=== PATIENT | female | born 1940 | race Caucasian/White ===

== ENCOUNTER 2018-11-19 08:28 | Inpatient (IN) | payer MEDICARE, OTHER ==
[~2018-11-19] VITALS: Ht 162.6 cm; Wt 89.2 kg
[2018-11-19] MEDS ORDERED: IV NORMAL SALINE 1000ML BAG 1,000 ML IV SCH (08:40)
[2018-11-19 08:53] LABS: BASO % 1 % (0-3); EOS # 0.1 x10^3/uL (0.0-0.7); EOS % 2 % (0-3); HEMATOCRIT 30.3 % (36.0-47.0); HEMOGLOBIN 9.9 g/dL (12.0-15.5); LYMPH # 0.9 x10^3/uL (1.0-4.8); LYMPH % 14 % (24-48); MEAN CORPUSCULAR HEMOGLOBIN 28 pg (25-35); MEAN CORPUSCULAR HGB CONC 33 g/dL (31-37); MEAN CORPUSCULAR VOLUME 87 fL (79-100); MONO # 0.5 x10^3/uL (0.0-1.1); MONO % 8 % (0-9); NEUT # 4.9 x10^3uL (1.8-7.7); NEUT % 76 % (31-73); PLATELET COUNT 178 x10^3/uL (140-400); RED CELL DISTRIBUTION WIDTH 17.4 % (11.5-14.5); WHITE BLOOD COUNT 6.4 x10^3/uL (4.0-11.0)
--- NOTE | 2018-11-19 08:57 | RAD ---
CT CODE STROKE HEAD WITHOUT CONTRAST Clinical indications: ALTERED MENTAL STATUS, BLANK GAZE, UNRESPONSIVE ON SET @802AM COMPARISON: February 09, 2007. Technique: Noncontrast axial cross sectional scanning of the head was performed. PQRS compliance Statement One or more of the following individualized dose reduction techniques were utilized for this study: 1. Automated exposure control 2. Adjustment of the mA and/or kV according to patient size 3. Use of iterative reconstruction technique Findings: No acute intracranial hemorrhage or midline shift or mass-effect or extra-axial fluid collection is seen. There is an increase in size of the lateral ventricles since the prior study. There is an increase in size of the sylvian fissures bilaterally consistent with progressive atrophy. There is mild bilateral periventricular white matter hypodensity consistent with chronic small vessel ischemic disease. There is an old appearing small cortical infarct of the upper right posterior parietal lobe medially. This is new since the previous study but demonstrates features indicating chronicity. No skull fracture or pneumocephalus is seen. No opacification of the mastoid sinuses or the middle ear cavities is seen. There is complete opacification of the left maxillary sinus and anterior left ethmoid sinus and left frontal sinus. Chronic opacification of the left anterior ethmoid sinus is seen and is unchanged. The left maxillary sinus is now completely opacified which has progressed from the prior study. Left frontal sinus is now completely opacified which has progressed from the prior study. There has been resolution of the left sphenoid sinusitis seen previously and there has been resolution of the previously seen left posterior ethmoid sinusitis. IMPRESSION: No acute intracranial hemorrhage is seen. Mild chronic small vessel ischemic disease of the periventricular white matter. 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 Increase in size of the lateral ventricles bilaterally. This could be secondary to progressive atrophy or normal pressure hydrocephalus. Chronic sinusitis with progression of the left frontal and maxillary sinuses. Note-this critical result was called to the emergency room physician at 8:44 AM on November 19, 2018. Electronically signed by: Abisai Shook MD (11/19/2018 8:53 AM) [facility]
[2018-11-19 09:01] LABS: CALCIUM 9.1 mg/dL (8.5-10.1); CREATININE 2.5 mg/dL (0.6-1.0); GFR 18.7; POTASSIUM 5.8 mmol/L (3.5-5.1)
[2018-11-19 09:03] LABS: PROTHROMBIN TIME PATIENT 16.4 SEC (11.7-14.0)
[2018-11-19 09:09] LABS: ALBUMIN 3.2 g/dL (3.4-5.0); ALBUMIN/GLOBULIN RATIO 0.8 (1.0-1.7); MAGNESIUM 2.4 mg/dL (1.8-2.4); TOTAL BILIRUBIN 0.7 mg/dL (0.2-1.0); TOTAL PROTEIN 7.3 g/dL (6.4-8.2)
[2018-11-19] MEDS ORDERED: NALOXONE 0.4 MG/ML VIAL. IV ONE (09:15)
--- NOTE | 2018-11-19 09:31 | RAD ---
PORTABLE CHEST 1V Clinical indications: altered mental status COMPARISON: April 09, 2008 Findings: Sternotomy is again evident. Since the previous study, a 3-lead pacemaker has been placed via a left subclavian approach. Heart size is mildly prominent some of which may be due to AP magnification. The mediastinum and pulmonary vasculature are unremarkable otherwise. Decreased lung volumes are seen which is chronic. There is right infrahilar infiltrate or atelectasis. There is medial left lung base infiltrate or atelectasis. Lateral left midlung zone linear atelectasis is seen. No pleural effusion or pneumothorax is seen. Impression: Right infrahilar atelectasis or infiltrate. Medial left lung base infiltrate or atelectasis. Linear atelectasis of the left midlung zone. Electronically signed by: Abisai Shook MD (11/19/2018 9:26 AM) [facility]
[2018-11-19] MEDS ORDERED: DEXTROSE 50% 25 GM / 50ML DISP.SYRIN. IV ONE (09:45)
[2018-11-19] MEDS ORDERED: INSULIN REGULAR 100 UNIT/ML 3ML VIAL. IV ONE (09:45)
--- NOTE | 2018-11-19 09:51 | PHYS DOC ---
Past Medical History Past Medical History: Anemia, Diabetes-Type II, High Cholesterol, Heart Disease , Hypertension Additional Past Medical Histor: CHRONIC KIDNEY DISEASE Past Surgical History: Pacemaker Additional Past Surgical Histo: NOT ABLE TO GET A FULL HISTORY Alcohol Use: None Drug Use: None Adult General Chief Complaint Chief Complaint: ALTERED MENTAL STATUS HPI HPI Patient is a 78-year-old female who arrives EMS with report of acute mental status changes. Patient is over at assisted living and reportedly was last seen normal at about 4:30 this morning. EMS reports that patient had one episode of emesis while at her facility and there was a second episode of emesis while in route to the hospital. They do note that patient has had a bit of a leftward gaze and otherwise they are not able to get any history of patient as she is nonverbal. Additional history is limited as patient is nonverbal secondary to mental status change. Review of Systems Review of Systems Constitutional: Denies fever [] Cardiovascular: No additional information not addressed in HPI [] GI: Positive nausea and vomiting [] Neurologic: Positive mental status changes [] Unable to fully assess review of systems due to patient's mental status and nonverbal state. Current Medications Current Medications Current Medications Medications (Trade) Dose Ordered Sig/Antonio Start Time Stop Time Status Last Admin Dose Admin Aspirin (Xander Aspirin) 325 mg 1X ONCE 11/19/18 10:15 11/19/18 10:16 DC Dextrose (Dextrose 50%-Water Syringe) 25 gm 1X ONCE 11/19/18 09:45 11/19/18 09:46 DC 11/19/18 10:02 25 GM Insulin Human Regular (HumuLIN R VIAL) 10 unit 1X ONCE 11/19/18 09:45 11/19/18 09:46 DC 11/19/18 10:01 10 UNIT Naloxone HCl (Narcan) 0.8 mg 1X ONCE 11/19/18 09:15 11/19/18 09:16 DC 11/19/18 10:02 0.8 MG Sodium Bicarbonate 50 meq/Sodium Chloride 1,050 ml @ 125 mls/hr 1X ONCE 11/19/18 10:00 11/19/18 18:23 11/19/18 09:52 125 MLS/HR Sodium Chloride 1,000 ml @ 100 mls/hr Q10H 11/19/18 08:40 11/19/18 18:39 11/19/18 09:54 100 MLS/HR Allergies Allergies Allergies Coded Allergies Type Severity Reaction Last Updated Verified Unable to Assess 11/19/18 No Physical Exam Physical Exam Constitutional: Somnolent but arousable, non-toxic appearance. [] HENT: Normocephalic, atraumatic, bilateral external ears normal, oropharynx dry , no oral exudates, nose normal. [] Eyes: PERRLA, EOMI, conjunctiva normal, no discharge. [] Neck: Normal range of motion, no tenderness, supple, no stridor. [] Cardiovascular: Regular rate and rhythm [] Lungs & Thorax: Bilateral breath sounds clear to auscultation [] Abdomen: Bowel sounds normal, soft, no tenderness. [] Skin: Warm, dry, no erythema, no rash. [] Extremities: No tenderness, no cyanosis, no clubbing. 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 Unable to fully assess neurological status due to patient having difficulty with following commands and nonverbal state. [] Current Patient Data Vital Signs Vital Signs Date Time Temp Pulse Resp B/P (MAP) Pulse Ox O2 Delivery O2 Flow Rate FiO2 11/19/18 08:38 98.4 64 14 143/75 (97) 90 Nasal Cannula 2.0 98.4 Lab Values Laboratory Tests Test 11/19/18 08:35 11/19/18 08:41 White Blood Count 6.4 x10^3/uL (4.0-11.0) Red Blood Count 3.50 x10^6/uL (3.50-5.40) Hemoglobin 9.9 g/dL (12.0-15.5) L Hematocrit 30.3 % (36.0-47.0) L Mean Corpuscular Volume 87 fL (79-100) Mean Corpuscular Hemoglobin 28 pg (25-35) Mean Corpuscular Hemoglobin Concent 33 g/dL (31-37) Red Cell Distribution Width 17.4 % (11.5-14.5) H Platelet Count 178 x10^3/uL (140-400) Neutrophils (%) (Auto) 76 % (31-73) H Lymphocytes (%) (Auto) 14 % (24-48) L Monocytes (%) (Auto) 8 % (0-9) Eosinophils (%) (Auto) 2 % (0-3) Basophils (%) (Auto) 1 % (0-3) Neutrophils # (Auto) 4.9 x10^3uL (1.8-7.7) Lymphocytes # (Auto) 0.9 x10^3/uL (1.0-4.8) L Monocytes # (Auto) 0.5 x10^3/uL (0.0-1.1) Eosinophils # (Auto) 0.1 x10^3/uL (0.0-0.7) Basophils # (Auto) 0.0 x10^3/uL (0.0-0.2) Prothrombin Time 16.4 SEC (11.7-14.0) H Prothrombin Time INR 1.4 (0.8-1.1) H Sodium Level 138 mmol/L (136-145) Potassium Level 5.8 mmol/L (3.5-5.1) H Chloride Level 105 mmol/L (98-107) Carbon Dioxide Level 21 mmol/L (21-32) Anion Gap 12 (6-14) Blood Urea Nitrogen 47 mg/dL (7-20) H Creatinine 2.5 mg/dL (0.6-1.0) H Estimated GFR (Cockcroft-Gault) 18.7 BUN/Creatinine Ratio 19 (6-20) Glucose Level 125 mg/dL (70-99) H Calcium Level 9.1 mg/dL (8.5-10.1) Magnesium Level 2.4 mg/dL (1.8-2.4) Total Bilirubin 0.7 mg/dL (0.2-1.0) Aspartate Amino Transferase (AST) 28 U/L (15-37) Alanine Aminotransferase (ALT) 19 U/L (14-59) Alkaline Phosphatase 150 U/L (46-116) H Troponin I Quantitative < 0.017 ng/mL (0.000-0.055) Total Protein 7.3 g/dL (6.4-8.2) Albumin 3.2 g/dL (3.4-5.0) L Albumin/Globulin Ratio 0.8 (1.0-1.7) L Glucose (Fingerstick) 121 mg/dL (70-99) H Laboratory Tests 11/19/18 08:35 Laboratory Tests 11/19/18 08:35 EKG EKG [] Interpretation Time: EKG demonstrates a ventricular paced rhythm with rate of 60 Radiology/Procedures Radiology/Procedures [] Impressions: CT CODE STROKE HEAD WITHOUT CONTRAST Clinical indications: ALTERED MENTAL STATUS, BLANK GAZE, UNRESPONSIVE ON SET @802AM COMPARISON: February 09, 2007. Technique: Noncontrast axial cross sectional scanning of the head was performed. PQRS compliance Statement One or more of the following individualized dose reduction techniques were utilized for this study: 1. Automated exposure control 2. Adjustment of the mA and/or kV according to patient size 3. Use of iterative reconstruction technique Findings: No acute intracranial hemorrhage or midline shift or mass-effect or extra-axial fluid collection is seen. There is an increase in size of the lateral ventricles since the prior study. There is an increase in size of the sylvian fissures bilaterally consistent with progressive atrophy. There is mild bilateral periventricular white matter hypodensity consistent with chronic small vessel ischemic disease. There is an old appearing small cortical infarct of the upper right posterior parietal lobe medially. This is new since the previous study but demonstrates features indicating chronicity. No skull fracture or pneumocephalus is seen. No opacification of the mastoid sinuses or the middle ear cavities is seen. There is complete opacification of the left maxillary sinus and anterior left ethmoid sinus and left frontal sinus. Chronic opacification of the left anterior ethmoid sinus is seen and is unchanged. The left maxillary sinus is now completely opacified which has progressed from the prior study. Left frontal sinus is now completely opacified which has progressed from the prior study. There has been resolution of the left sphenoid sinusitis seen previously and there has been resolution of the previously seen left posterior ethmoid sinusitis. IMPRESSION: No acute intracranial hemorrhage is seen. Mild chronic small vessel ischemic disease of the periventricular white matter. 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 Increase in size of the lateral ventricles bilaterally. This could be secondary to progressive atrophy or normal pressure hydrocephalus. Chronic sinusitis with progression of the left frontal and maxillary sinuses. Note-this critical result was called to the emergency room physician at 8:44 AM on November 19, 2018. Electronically signed by: Abisai Shook MD (11/19/2018 8:53 AM) [facility] Course & Med Decision Making Course & Med Decision Making Pertinent Labs and Imaging studies reviewed. (See chart for details) Patient seen and evaluated by your medical staff and immediately sent down for CT head without contrast. An IV was established and blood work drawn. Initial evaluation of patient very limited due to mental status. Patient was given a dose of IV Narcan 0.8 mg. Later, during nurse assessment, an NIH stroke scale was performed and returned with a score of 18. At this point, nurse indicates that patient was more verbal and was following commands. Dr. Pepper, on-call for neurology, was consulted and recommends admission under hospitalist service for further workup. Dragon Disclaimer Dragon Disclaimer This electronic medical record was generated, in whole or in part, using a voice recognition dictation system. Departure Departure Impression: Primary Impression: Altered mental status, unspecified Additional Impression: Right sided weakness Disposition: ADMITTED INPATIENT Admitting Physician: Renetta Saldivar Condition: IMPROVED Problem Qualifiers Primary Impression: Altered mental status, unspecified Altered mental status type: unspecified Qualified Codes: R41.82 - Altered mental status, unspecified LEE FRAGOSO Jr. DO Nov 19, 2018 09:51
[2018-11-19] MEDS ORDERED: SODIUM BICARBONATE VIAL 50 MEQ in IV 1/2 NORMAL SALINE 1,000 ML IV ONE (10:00)
[2018-11-19] MEDS ORDERED: ASPIRIN 325 MG TABLET PO ONE (10:15)
--- NOTE | 2018-11-19 10:49 | PDOC1 ---
History and Physical Date of Admission Date of Admission DATE: 11/19/18 TIME: 10:42 Identification/Chief Complaint Chief Complaint Change in mental status in assisted living Source Source: Caregiver, Chart review, Patient History of Present Illness History of Present Illness MOst of hx obtained from the ER M.D. and from the chart as patient is nonverbal or minimally cooperative and there is no family at bedside Apparently last seen well 4:30 AM giving meds and the next thing they went in and she was not mumbling words. Neuro exam is hard to get or NIH is hard to get because she is not cooperative. But CT head is negative and chest x-ray maybe shows atelectasis may be infiltrate or haziness on the right and medial lower lobes. Labs are remarkable for mild hyperkalemia with no EKG changes 5.8 with a creatinine 2.5. INR 1.2 hemoglobin 9. Vital signs okay. Admitted with call out to neurology for MRI echo stroke workup. I will also consult renal regarding this hyperkalemia and creatinine. Bicarbonate and anion gap is normal Patient is a full code per chart I am unsure of past medical as we are still waiting for home meds Past Surgical History Past Surgical History: Other (unknown) Family History Family History: Family History Unknown Social History Smoke: No ALCOHOL: none Drugs: None Current Problem List Problem List Problems Medical Problems: (1) Altered mental status, unspecified Status: Acute (2) Right sided weakness Status: Acute Current Medications Current Medications Current Medications Sodium Chloride 1,000 ml @ 100 mls/hr Q10H IV Last administered on 11/19/18at 09:54; Start 11/19/18 at 08:40; Stop 11/19/18 at 18:39 Naloxone HCl (Narcan) 0.8 mg 1X ONCE IV Last administered on 11/19/18at 10:02; Start 11/19/18 at 09:15; Stop 11/19/18 at 09:16; Status DC Insulin Human Regular (HumuLIN R VIAL) 10 unit 1X ONCE IV Last administered on 11/19/18at 10:01; Start 11/19/18 at 09:45; Stop 11/19/18 at 09:46; Status DC Dextrose (Dextrose 50%-Water Syringe) 25 gm 1X ONCE IV Last administered on at 10:02; Start 11/19/18 at 09:45; Stop 11/19/18 at 09:46; Status DC Sodium Bicarbonate 50 meq/Sodium Chloride 1,050 ml @ 125 mls/hr 1X ONCE IV Last administered on 11/19/18at 09:52; Start 11/19/18 at 10:00; Stop 11/19/18 at 18:23 Aspirin (Xander Aspirin) 325 mg 1X ONCE PO ; Start 11/19/18 at 10:15; Stop 11/19 at 10:16; Status DC Allergies Allergies: Coded Allergies: Unable to Assess (Unverified , 11/19/18) ROS Review of System limited, noncooperative Physical Exam General: No acute distress HEENT: PERRLA Lungs: Normal air movement, Other (dec BS sec to poor effort, SCE) Heart: S1S2, RRR, no thrills, no rubs, no gallops, no murmurs Cardiovascular: S1, S2 Breasts: Normal, Rt breast nml w/o mass, Lt breast nml w/o mass, Nipples normal Abdomen: Normal bowel sounds, Soft, No tenderness, No hepatosplenomegaly, No masses Rectal Exam: not examined PELVIC: Nml ext genitalia Extremities: No clubbing, No cyanosis, No edema, Normal pulses, No tenderness/ swelling Skin: No rashes, No breakdown, No significant lesion Neuro: Normal gait, Normal speech, Strength at 5/5 X4 ext, Normal tone, Sensation intact, Cranial nerves 3-12 NL, Reflexes 2+ Psych/Mental Status: Mental status NL, Mood NL Vitals Vitals Vital Signs Date Time Temp Pulse Resp B/P (MAP) Pulse Ox O2 Delivery O2 Flow Rate FiO2 11/19/18 08:38 98.4 64 14 143/75 (97) 90 Nasal Cannula 2.0 98.4 Labs Labs Laboratory Tests Test 11/19/18 08:35 11/19/18 08:41 White Blood Count 6.4 x10^3/uL (4.0-11.0) Red Blood Count 3.50 x10^6/uL (3.50-5.40) Hemoglobin 9.9 g/dL (12.0-15.5) Hematocrit 30.3 % (36.0-47.0) Mean Corpuscular Volume 87 fL (79-100) Mean Corpuscular Hemoglobin 28 pg (25-35) Mean Corpuscular Hemoglobin Concent 33 g/dL (31-37) Red Cell Distribution Width 17.4 % (11.5-14.5) Platelet Count 178 x10^3/uL (140-400) Neutrophils (%) (Auto) 76 % (31-73) Lymphocytes (%) (Auto) 14 % (24-48) Monocytes (%) (Auto) 8 % (0-9) Eosinophils (%) (Auto) 2 % (0-3) Basophils (%) (Auto) 1 % (0-3) Neutrophils # (Auto) 4.9 x10^3uL (1.8-7.7) Lymphocytes # (Auto) 0.9 x10^3/uL (1.0-4.8) Monocytes # (Auto) 0.5 x10^3/uL (0.0-1.1) Eosinophils # (Auto) 0.1 x10^3/uL (0.0-0.7) Basophils # (Auto) 0.0 x10^3/uL (0.0-0.2) Prothrombin Time 16.4 SEC (11.7-14.0) Prothromb Time International Ratio 1.4 (0.8-1.1) Sodium Level 138 mmol/L (136-145) Potassium Level 5.8 mmol/L (3.5-5.1) Chloride Level 105 mmol/L (98-107) Carbon Dioxide Level 21 mmol/L (21-32) Anion Gap 12 (6-14) Blood Urea Nitrogen 47 mg/dL (7-20) Creatinine 2.5 mg/dL (0.6-1.0) Estimated GFR (Cockcroft-Gault) 18.7 BUN/Creatinine Ratio 19 (6-20) Glucose Level 125 mg/dL (70-99) Calcium Level 9.1 mg/dL (8.5-10.1) Magnesium Level 2.4 mg/dL (1.8-2.4) Total Bilirubin 0.7 mg/dL (0.2-1.0) Aspartate Amino Transf (AST/SGOT) 28 U/L (15-37) Alanine Aminotransferase (ALT/SGPT) 19 U/L (14-59) Alkaline Phosphatase 150 U/L (46-116) Troponin I Quantitative < 0.017 ng/mL (0.000-0.055) Total Protein 7.3 g/dL (6.4-8.2) Albumin 3.2 g/dL (3.4-5.0) Albumin/Globulin Ratio 0.8 (1.0-1.7) Glucose (Fingerstick) 121 mg/dL (70-99) Laboratory Tests Test 11/19/18 08:35 11/19/18 08:41 White Blood Count 6.4 x10^3/uL (4.0-11.0) Red Blood Count 3.50 x10^6/uL (3.50-5.40) Hemoglobin 9.9 g/dL (12.0-15.5) Hematocrit 30.3 % (36.0-47.0) Mean Corpuscular Volume 87 fL (79-100) Mean Corpuscular Hemoglobin 28 pg (25-35) Mean Corpuscular Hemoglobin Concent 33 g/dL (31-37) Red Cell Distribution Width 17.4 % (11.5-14.5) Platelet Count 178 x10^3/uL (140-400) Neutrophils (%) (Auto) 76 % (31-73) Lymphocytes (%) (Auto) 14 % (24-48) Monocytes (%) (Auto) 8 % (0-9) Eosinophils (%) (Auto) 2 % (0-3) Basophils (%) (Auto) 1 % (0-3) Neutrophils # (Auto) 4.9 x10^3uL (1.8-7.7) Lymphocytes # (Auto) 0.9 x10^3/uL (1.0-4.8) Monocytes # (Auto) 0.5 x10^3/uL (0.0-1.1) Eosinophils # (Auto) 0.1 x10^3/uL (0.0-0.7) Basophils # (Auto) 0.0 x10^3/uL (0.0-0.2) Prothrombin Time 16.4 SEC (11.7-14.0) Prothromb Time International Ratio 1.4 (0.8-1.1) Sodium Level 138 mmol/L (136-145) Potassium Level 5.8 mmol/L (3.5-5.1) Chloride Level 105 mmol/L (98-107) Carbon Dioxide Level 21 mmol/L (21-32) Anion Gap 12 (6-14) Blood Urea Nitrogen 47 mg/dL (7-20) Creatinine 2.5 mg/dL (0.6-1.0) Estimated GFR (Cockcroft-Gault) 18.7 BUN/Creatinine Ratio 19 (6-20) Glucose Level 125 mg/dL (70-99) Calcium Level 9.1 mg/dL (8.5-10.1) Magnesium Level 2.4 mg/dL (1.8-2.4) Total Bilirubin 0.7 mg/dL (0.2-1.0) Aspartate Amino Transf (AST/SGOT) 28 U/L (15-37) Alanine Aminotransferase (ALT/SGPT) 19 U/L (14-59) Alkaline Phosphatase 150 U/L (46-116) Troponin I Quantitative < 0.017 ng/mL (0.000-0.055) Total Protein 7.3 g/dL (6.4-8.2) Albumin 3.2 g/dL (3.4-5.0) Albumin/Globulin Ratio 0.8 (1.0-1.7) Glucose (Fingerstick) 121 mg/dL (70-99) VTE Prophylaxis Ordered VTE Prophylaxis Devices: Yes VTE Pharmacological Prophylaxi: Yes Assessment/Plan Assessment/Plan Met enCephalopathy differentials include aspiration versus rule out CVA versus rule out [id number] workup Fall precaution Nothing by mouth for now until DIRECTOR OF PROVIDER RELATIONS eval or mentation improves AK I ?CK D with hyperkalemia Anemia normocytic [place] resident Full code PLAN: Admit 2 [place] NOthing By mouth, ProcalAmine, DIRECTOR OF PROVIDER RELATIONS eval, PT OT, full code Stroke workup Differentials include meds induced versus aspiration versus CVA I'm waiting for Home meds to reconcile Consult renal regarding the creatinine and hyperkalemia Kayexalate now Temporizing measures for the potassium DVT ppx with heparin Seen at ER 2 PACO CHAO MD Nov 19, 2018 10:49
[2018-11-19] MEDS ORDERED: ACETAMINOPHEN 500 MG TABLET PO PRN (11:00)
[2018-11-19] MEDS ORDERED: MORPHINE SULFATE 4 MG/ML VIAL. IV PRN (11:00)
[2018-11-19] MEDS ORDERED: ONDANSETRON PF 4 MG/2 ML VIAL. IV PRN (11:00)
[2018-11-19 13:40] LABS: BILIRUBIN,URINE NEGATIVE (NEG); CLARITY,URINE CLEAR; COLOR,URINE YELLOW; NITRITE,URINE NEGATIVE (NEG); PH,URINE 5.5; PROTEIN,URINE >=300 mg/dL (NEG-TRACE)
[2018-11-19 13:53] LABS: BACTERIA,URINE 0 /HPF (0-FEW); RBC,URINE RARE /HPF (0-2); SQUAMOUS EPITHELIAL CELL,UR MOD /LPF; WBC,URINE 0 /HPF (0-4)
[2018-11-19] MEDS: HEPARIN for SUB-Q USE 5,000 UNIT/ML VIAL. SQ SCH ×2 (14:00→21:15)
--- NOTE | 2018-11-19 14:36 | NUR ---
NIHSS done at bedside upon transfer to [facility] with Phong SHANKAR from . Addendum: 11/19/18 at 1437 by EVANGELISTA BENDER RN Amended: Links added.
--- NOTE | 2018-11-19 14:46 | PDOC2 ---
CONSULT Date of Consult Date of Consult DATE: 11/19/18 TIME: 14:43 Reason for Consult Reason for Consult: Change in mental status Identification/Chief Complaint Chief Complaint Change in mental status History of Present Illness Reason for Visit: This patient is 78-year-old woman who presented to from the facility with change in mental status. Patient lives at assisted living facility. Information obtained from multiple family members at bedside. Patient was not feeling well for last over 1 day. Patient at this morning for 30 was more confused patient does have previous history of stroke with aphasia and ambulates with a wheelchair at baseline. Patient had a chest x-ray showing possible infiltrate. Patient also has elevated creatinine on presentation. Past Surgical History Past Surgical History: Other (unknown) Family History Family History: Family History Unknown Social History No ALCOHOL: none Drugs: None Current Problem List Problem List Problems Medical Problems: (1) Altered mental status, unspecified Status: Acute (2) Right sided weakness Status: Acute Current Medications Current Medications Current Medications Sodium Chloride 1,000 ml @ 100 mls/hr Q10H IV Last administered on 11/19/18at 09:54; Start 11/19/18 at 08:40; Stop 11/19/18 at 18:39 Naloxone HCl (Narcan) 0.8 mg 1X ONCE IV Last administered on 11/19/18at 10:02; Start 11/19/18 at 09:15; Stop 11/19/18 at 09:16; Status DC Insulin Human Regular (HumuLIN R VIAL) 10 unit 1X ONCE IV Last administered on 11/19/18at 10:01; Start 11/19/18 at 09:45; Stop 11/19/18 at 09:46; Status DC Dextrose (Dextrose 50%-Water Syringe) 25 gm 1X ONCE IV Last administered on at 10:02; Start 11/19/18 at 09:45; Stop 11/19/18 at 09:46; Status DC Sodium Bicarbonate 50 meq/Sodium Chloride 1,050 ml @ 125 mls/hr 1X ONCE IV Last administered on 11/19/18at 09:52; Start 11/19/18 at 10:00; Stop 11/19/18 at 18:23 Aspirin (Xander Aspirin) 325 mg 1X ONCE PO ; Start 11/19/18 at 10:15; Stop 11/19 at 10:16; Status DC Famotidine (Pepcid Vial) 20 mg QHS IVP ; Start 11/19/18 at 21:00 Heparin Sodium (Porcine) (Heparin Sodium) 5,000 unit Q8HRS SQ ; Start 11/19/18 at 14:00 Acetaminophen (Tylenol) 500 mg PRN Q6HRS PRN PO HEADACHE / TEMP; Start at 11:00 Ondansetron HCl (Zofran) 4 mg PRN Q6HRS PRN IV NAUSEA/VOMITING; Start 11/19/18 at 11:00 Morphine Sulfate (Morphine Sulfate) 1 mg PRN Q2HR PRN IV PAIN; Start 11/19/18 at 11:00 Allergies Allergies: Coded Allergies: No Known Drug Allergies (Unverified , 11/19/18) Physical Exam Physical Exam REVIEW OF SYSTEMS: Otherwise, not [id number] review of systems. PHYSICAL EXAMINATION: General appearance is no acute distress. HEENT: Normocephalic and nontraumatic. Neck is supple. No lymphadenopathy. No crepitus. Cardiovascular: S1, S2, regular rate and rhythm. Pulmonary: Clear to auscultation bilaterally. Abdomen: Bowel sounds are positive. Abdomen is soft, nontender, and nondistended. NEUROLOGICAL EXAMINATION: Alert Able to follow simple commands. PERRL. EOMI. CN: no focal findings Physiatry. Muscle tone: within normal. Muscle strength: Able to move upper extremities lower extremity minimum. DTR: 1 Plantar reflex: Flexor response bilaterally Gait: not examined in bed. Sensory exam: no abnormal findings. Vitals VITALS Vital Signs Date Time Temp Pulse Resp B/P (MAP) Pulse Ox O2 Delivery O2 Flow Rate FiO2 11/19/18 10:45 59 16 100 11/19/18 08:38 98.4 143/75 (97) Nasal Cannula 2.0 98.4 Labs Labs Laboratory Tests Test 11/19/18 08:35 11/19/18 08:41 11/19/18 13:14 White Blood Count 6.4 x10^3/uL (4.0-11.0) Red Blood Count 3.50 x10^6/uL (3.50-5.40) Hemoglobin 9.9 g/dL (12.0-15.5) Hematocrit 30.3 % (36.0-47.0) Mean Corpuscular Volume 87 fL (79-100) Mean Corpuscular Hemoglobin 28 pg (25-35) Mean Corpuscular Hemoglobin Concent 33 g/dL (31-37) Red Cell Distribution Width 17.4 % (11.5-14.5) Platelet Count 178 x10^3/uL (140-400) Neutrophils (%) (Auto) 76 % (31-73) Lymphocytes (%) (Auto) 14 % (24-48) Monocytes (%) (Auto) 8 % (0-9) Eosinophils (%) (Auto) 2 % (0-3) Basophils (%) (Auto) 1 % (0-3) Neutrophils # (Auto) 4.9 x10^3uL (1.8-7.7) Lymphocytes # (Auto) 0.9 x10^3/uL (1.0-4.8) Monocytes # (Auto) 0.5 x10^3/uL (0.0-1.1) Eosinophils # (Auto) 0.1 x10^3/uL (0.0-0.7) Basophils # (Auto) 0.0 x10^3/uL (0.0-0.2) Prothrombin Time 16.4 SEC (11.7-14.0) Prothromb Time International Ratio 1.4 (0.8-1.1) Sodium Level 138 mmol/L (136-145) Potassium Level 5.8 mmol/L (3.5-5.1) Chloride Level 105 mmol/L (98-107) Carbon Dioxide Level 21 mmol/L (21-32) Anion Gap 12 (6-14) Blood Urea Nitrogen 47 mg/dL (7-20) Creatinine 2.5 mg/dL (0.6-1.0) Estimated GFR (Cockcroft-Gault) 18.7 BUN/Creatinine Ratio 19 (6-20) Glucose Level 125 mg/dL (70-99) Calcium Level 9.1 mg/dL (8.5-10.1) Magnesium Level 2.4 mg/dL (1.8-2.4) Total Bilirubin 0.7 mg/dL (0.2-1.0) Aspartate Amino Transf (AST/SGOT) 28 U/L (15-37) Alanine Aminotransferase (ALT/SGPT) 19 U/L (14-59) Alkaline Phosphatase 150 U/L (46-116) Troponin I Quantitative < 0.017 ng/mL (0.000-0.055) Total Protein 7.3 g/dL (6.4-8.2) Albumin 3.2 g/dL (3.4-5.0) Albumin/Globulin Ratio 0.8 (1.0-1.7) Glucose (Fingerstick) 121 mg/dL (70-99) Urine Collection Type U cath Urine Color Yellow Urine Clarity Clear Urine pH 5.5 Urine Specific [place] 1.020 Urine Protein >=300 mg/dL (NEG-TRACE) Urine Glucose (UA) Negative mg/dL (NEG) Urine Ketones (Stick) Negative mg/dL (NEG) Urine Blood Negative (NEG) Urine Nitrite Negative (NEG) Urine Bilirubin Negative (NEG) Urine Urobilinogen Dipstick 1.0 mg/dL (0.2 mg/dL) Urine Leukocyte Esterase Negative (NEG) Urine RBC Rare /HPF (0-2) Urine WBC 0 /HPF (0-4) Urine Squamous Epithelial Cells Mod /LPF Urine Transitional Epithelial Cells Occ /LPF Urine Bacteria 0 /HPF (0-FEW) Laboratory Tests Test 11/19/18 08:35 11/19/18 08:41 11/19/18 13:14 White Blood Count 6.4 x10^3/uL (4.0-11.0) Red Blood Count 3.50 x10^6/uL (3.50-5.40) Hemoglobin 9.9 g/dL (12.0-15.5) Hematocrit 30.3 % (36.0-47.0) Mean Corpuscular Volume 87 fL (79-100) Mean Corpuscular Hemoglobin 28 pg (25-35) Mean Corpuscular Hemoglobin Concent 33 g/dL (31-37) Red Cell Distribution Width 17.4 % (11.5-14.5) Platelet Count 178 x10^3/uL (140-400) Neutrophils (%) (Auto) 76 % (31-73) Lymphocytes (%) (Auto) 14 % (24-48) Monocytes (%) (Auto) 8 % (0-9) Eosinophils (%) (Auto) 2 % (0-3) Basophils (%) (Auto) 1 % (0-3) Neutrophils # (Auto) 4.9 x10^3uL (1.8-7.7) Lymphocytes # (Auto) 0.9 x10^3/uL (1.0-4.8) Monocytes # (Auto) 0.5 x10^3/uL (0.0-1.1) Eosinophils # (Auto) 0.1 x10^3/uL (0.0-0.7) Basophils # (Auto) 0.0 x10^3/uL (0.0-0.2) Prothrombin Time 16.4 SEC (11.7-14.0) Prothromb Time International Ratio 1.4 (0.8-1.1) Sodium Level 138 mmol/L (136-145) Potassium Level 5.8 mmol/L (3.5-5.1) Chloride Level 105 mmol/L (98-107) Carbon Dioxide Level 21 mmol/L (21-32) Anion Gap 12 (6-14) Blood Urea Nitrogen 47 mg/dL (7-20) Creatinine 2.5 mg/dL (0.6-1.0) Estimated GFR (Cockcroft-Gault) 18.7 BUN/Creatinine Ratio 19 (6-20) Glucose Level 125 mg/dL (70-99) Calcium Level 9.1 mg/dL (8.5-10.1) Magnesium Level 2.4 mg/dL (1.8-2.4) Total Bilirubin 0.7 mg/dL (0.2-1.0) Aspartate Amino Transf (AST/SGOT) 28 U/L (15-37) Alanine Aminotransferase (ALT/SGPT) 19 U/L (14-59) Alkaline Phosphatase 150 U/L (46-116) Troponin I Quantitative < 0.017 ng/mL (0.000-0.055) Total Protein 7.3 g/dL (6.4-8.2) Albumin 3.2 g/dL (3.4-5.0) Albumin/Globulin Ratio 0.8 (1.0-1.7) Glucose (Fingerstick) 121 mg/dL (70-99) Urine Collection Type U cath Urine Color Yellow Urine Clarity Clear Urine pH 5.5 Urine Specific [place] 1.020 Urine Protein >=300 mg/dL (NEG-TRACE) Urine Glucose (UA) Negative mg/dL (NEG) Urine Ketones (Stick) Negative mg/dL (NEG) Urine Blood Negative (NEG) Urine Nitrite Negative (NEG) Urine Bilirubin Negative (NEG) Urine Urobilinogen Dipstick 1.0 mg/dL (0.2 mg/dL) Urine Leukocyte Esterase Negative (NEG) Urine RBC Rare /HPF (0-2) Urine WBC 0 /HPF (0-4) Urine Squamous Epithelial Cells Mod /LPF Urine Transitional Epithelial Cells Occ /LPF Urine Bacteria 0 /HPF (0-FEW) Assessment/Plan Assessment/Plan This patient is 78-year-old woman who presented to from the facility with altered mental status. Patient lives at assisted living facility. Information obtained from multiple family members at bedside. Patient was not feeling well for last over 1 day. Patient at this morning for 30 was more confused patient does have previous history of stroke with aphasia and ambulates with a wheelchair at baseline. Patient had a chest x-ray showing possible infiltrate. Patient also has elevated creatinine on presentation. 78-year-old female with past medical history of multiple medical problems with previous history of stroke patient ambulates with wheelchair at baseline. Patient did not meet criteria for IV TPA patient was outside the window. Encephalopathy multifactorial we will evaluate for any acute intracranial process. pt is currently being treated for acute on chronic kidney disease, hyperkalemia, aspiration pneumonia. She had a CT scan done in emergency room which did not show any evidence of acute bleed. Changes noted for chronic small vessel ischemic disease. Old cortical stroke noted in right parietal lobe. Changes also noted for generalized atrophy. Changes on dual antiplatelet. MRI brain may not be done due to current medical condition. Check 2-D echo, K Doppler, check lipid profile, statin, PTOT speech evaluation. Check for infectious or metabolic etiology. Continue medical management. Plan discussed with multiple family members at bedside. DELMA GARCIA MD Nov 19, 2018 14:46
[2018-11-19 15:00] VITALS: BP 146/56
--- NOTE | 2018-11-19 15:04 | PDOC2 ---
CONSULT Date of Consult Date of Consult DATE: 11/19/18 TIME: 14:55 Reason for Consult Reason for Consult: NEETU AND HIGH K Referring Physician Referring Physician: ZHANNA Identification/Chief Complaint Chief Complaint CONFUSION Source Source: Chart review History of Present Illness Reason for Visit: THIS IS A 78 YR OLD WHO APPARENTLY HAS RIGHT SIDED WEAKNESS AND IS NON VERBAL. FELT TO ACUTE IN NATURE. SHE CANNOT GIVE ANY HX. IMAGING OF THE HEAD HAS BEEN NEG THUS FAR. NO OLD RECORDS HERE AND NONE FROM ELSE WHERE AVAILABLE. CR OF 2.5 AND K OF 5.8 WITH MILD MET ACIDOSIS NOTED. APPEARS TO BE SOMEWHAT DEHYDRATED Past Medical History Past Medical History UNKNOWN Cardiovascular: HTN Past Surgical History Past Surgical History: Other (unknown) Family History Family History: No Significant, Family History Unknown Social History No ALCOHOL: none Drugs: None Lives: [facility] Current Problem List Problem List Problems Medical Problems: (1) Altered mental status, unspecified Status: Acute (2) Right sided weakness Status: Acute Current Medications Current Medications Current Medications Sodium Chloride 1,000 ml @ 100 mls/hr Q10H IV Last administered on 11/19/18at 09:54; Start 11/19/18 at 08:40; Stop 11/19/18 at 18:39 Naloxone HCl (Narcan) 0.8 mg 1X ONCE IV Last administered on 11/19/18at 10:02; Start 11/19/18 at 09:15; Stop 11/19/18 at 09:16; Status DC Insulin Human Regular (HumuLIN R VIAL) 10 unit 1X ONCE IV Last administered on 11/19/18at 10:01; Start 11/19/18 at 09:45; Stop 11/19/18 at 09:46; Status DC Dextrose (Dextrose 50%-Water Syringe) 25 gm 1X ONCE IV Last administered on at 10:02; Start 11/19/18 at 09:45; Stop 11/19/18 at 09:46; Status DC Sodium Bicarbonate 50 meq/Sodium Chloride 1,050 ml @ 125 mls/hr 1X ONCE IV Last administered on 11/19/18at 09:52; Start 11/19/18 at 10:00; Stop 11/19/18 at 18:23 Aspirin (Xander Aspirin) 325 mg 1X ONCE PO ; Start 11/19/18 at 10:15; Stop 11/19 at 10:16; Status DC Famotidine (Pepcid Vial) 20 mg QHS IVP ; Start 11/19/18 at 21:00 Heparin Sodium (Porcine) (Heparin Sodium) 5,000 unit Q8HRS SQ ; Start 11/19/18 at 14:00 Acetaminophen (Tylenol) 500 mg PRN Q6HRS PRN PO HEADACHE / TEMP; Start at 11:00 Ondansetron HCl (Zofran) 4 mg PRN Q6HRS PRN IV NAUSEA/VOMITING; Start 11/19/18 at 11:00 Morphine Sulfate (Morphine Sulfate) 1 mg PRN Q2HR PRN IV PAIN; Start 11/19/18 at 11:00 Allergies Allergies: Coded Allergies: No Known Drug Allergies (Unverified , 11/19/18) ROS Review of System UNABLE TO OBTAIN FROM PT Physical Exam General: No acute distress, Other (CONFUSED) HEENT: Other (DRY MUCOSA) Heart: Regular rate Abdomen: Normal bowel sounds, Soft Extremities: No clubbing Skin: No breakdown Psych/Mental Status: Other (CONFUSED) MUSCULOSKELETAL: Other (MUSCULAR ATROPHY) Vitals VITALS Vital Signs Date Time Temp Pulse Resp B/P (MAP) Pulse Ox O2 Delivery O2 Flow Rate FiO2 11/19/18 13:30 59 20 100 11/19/18 08:38 98.4 143/75 (97) Nasal Cannula 2.0 98.4 Labs Labs Laboratory Tests Test 11/19/18 08:35 11/19/18 08:41 11/19/18 13:14 White Blood Count 6.4 x10^3/uL (4.0-11.0) Red Blood Count 3.50 x10^6/uL (3.50-5.40) Hemoglobin 9.9 g/dL (12.0-15.5) Hematocrit 30.3 % (36.0-47.0) Mean Corpuscular Volume 87 fL (79-100) Mean Corpuscular Hemoglobin 28 pg (25-35) Mean Corpuscular Hemoglobin Concent 33 g/dL (31-37) Red Cell Distribution Width 17.4 % (11.5-14.5) Platelet Count 178 x10^3/uL (140-400) Neutrophils (%) (Auto) 76 % (31-73) Lymphocytes (%) (Auto) 14 % (24-48) Monocytes (%) (Auto) 8 % (0-9) Eosinophils (%) (Auto) 2 % (0-3) Basophils (%) (Auto) 1 % (0-3) Neutrophils # (Auto) 4.9 x10^3uL (1.8-7.7) Lymphocytes # (Auto) 0.9 x10^3/uL (1.0-4.8) Monocytes # (Auto) 0.5 x10^3/uL (0.0-1.1) Eosinophils # (Auto) 0.1 x10^3/uL (0.0-0.7) Basophils # (Auto) 0.0 x10^3/uL (0.0-0.2) Prothrombin Time 16.4 SEC (11.7-14.0) Prothromb Time International Ratio 1.4 (0.8-1.1) Sodium Level 138 mmol/L (136-145) Potassium Level 5.8 mmol/L (3.5-5.1) Chloride Level 105 mmol/L (98-107) Carbon Dioxide Level 21 mmol/L (21-32) Anion Gap 12 (6-14) Blood Urea Nitrogen 47 mg/dL (7-20) Creatinine 2.5 mg/dL (0.6-1.0) Estimated GFR (Cockcroft-Gault) 18.7 BUN/Creatinine Ratio 19 (6-20) Glucose Level 125 mg/dL (70-99) Calcium Level 9.1 mg/dL (8.5-10.1) Magnesium Level 2.4 mg/dL (1.8-2.4) Total Bilirubin 0.7 mg/dL (0.2-1.0) Aspartate Amino Transf (AST/SGOT) 28 U/L (15-37) Alanine Aminotransferase (ALT/SGPT) 19 U/L (14-59) Alkaline Phosphatase 150 U/L (46-116) Troponin I Quantitative < 0.017 ng/mL (0.000-0.055) Total Protein 7.3 g/dL (6.4-8.2) Albumin 3.2 g/dL (3.4-5.0) Albumin/Globulin Ratio 0.8 (1.0-1.7) Glucose (Fingerstick) 121 mg/dL (70-99) Urine Collection Type U cath Urine Color Yellow Urine Clarity Clear Urine pH 5.5 Urine Specific [place] 1.020 Urine Protein >=300 mg/dL (NEG-TRACE) Urine Glucose (UA) Negative mg/dL (NEG) Urine Ketones (Stick) Negative mg/dL (NEG) Urine Blood Negative (NEG) Urine Nitrite Negative (NEG) Urine Bilirubin Negative (NEG) Urine Urobilinogen Dipstick 1.0 mg/dL (0.2 mg/dL) Urine Leukocyte Esterase Negative (NEG) Urine RBC Rare /HPF (0-2) Urine WBC 0 /HPF (0-4) Urine Squamous Epithelial Cells Mod /LPF Urine Transitional Epithelial Cells Occ /LPF Urine Bacteria 0 /HPF (0-FEW) Laboratory Tests Test 11/19/18 08:35 11/19/18 08:41 11/19/18 13:14 White Blood Count 6.4 x10^3/uL (4.0-11.0) Red Blood Count 3.50 x10^6/uL (3.50-5.40) Hemoglobin 9.9 g/dL (12.0-15.5) Hematocrit 30.3 % (36.0-47.0) Mean Corpuscular Volume 87 fL (79-100) Mean Corpuscular Hemoglobin 28 pg (25-35) Mean Corpuscular Hemoglobin Concent 33 g/dL (31-37) Red Cell Distribution Width 17.4 % (11.5-14.5) Platelet Count 178 x10^3/uL (140-400) Neutrophils (%) (Auto) 76 % (31-73) Lymphocytes (%) (Auto) 14 % (24-48) Monocytes (%) (Auto) 8 % (0-9) Eosinophils (%) (Auto) 2 % (0-3) Basophils (%) (Auto) 1 % (0-3) Neutrophils # (Auto) 4.9 x10^3uL (1.8-7.7) Lymphocytes # (Auto) 0.9 x10^3/uL (1.0-4.8) Monocytes # (Auto) 0.5 x10^3/uL (0.0-1.1) Eosinophils # (Auto) 0.1 x10^3/uL (0.0-0.7) Basophils # (Auto) 0.0 x10^3/uL (0.0-0.2) Prothrombin Time 16.4 SEC (11.7-14.0) Prothromb Time International Ratio 1.4 (0.8-1.1) Sodium Level 138 mmol/L (136-145) Potassium Level 5.8 mmol/L (3.5-5.1) Chloride Level 105 mmol/L (98-107) Carbon Dioxide Level 21 mmol/L (21-32) Anion Gap 12 (6-14) Blood Urea Nitrogen 47 mg/dL (7-20) Creatinine 2.5 mg/dL (0.6-1.0) Estimated GFR (Cockcroft-Gault) 18.7 BUN/Creatinine Ratio 19 (6-20) Glucose Level 125 mg/dL (70-99) Calcium Level 9.1 mg/dL (8.5-10.1) Magnesium Level 2.4 mg/dL (1.8-2.4) Total Bilirubin 0.7 mg/dL (0.2-1.0) Aspartate Amino Transf (AST/SGOT) 28 U/L (15-37) Alanine Aminotransferase (ALT/SGPT) 19 U/L (14-59) Alkaline Phosphatase 150 U/L (46-116) Troponin I Quantitative < 0.017 ng/mL (0.000-0.055) Total Protein 7.3 g/dL (6.4-8.2) Albumin 3.2 g/dL (3.4-5.0) Albumin/Globulin Ratio 0.8 (1.0-1.7) Glucose (Fingerstick) 121 mg/dL (70-99) Urine Collection Type U cath Urine Color Yellow Urine Clarity Clear Urine pH 5.5 Urine Specific [place] 1.020 Urine Protein >=300 mg/dL (NEG-TRACE) Urine Glucose (UA) Negative mg/dL (NEG) Urine Ketones (Stick) Negative mg/dL (NEG) Urine Blood Negative (NEG) Urine Nitrite Negative (NEG) Urine Bilirubin Negative (NEG) Urine Urobilinogen Dipstick 1.0 mg/dL (0.2 mg/dL) Urine Leukocyte Esterase Negative (NEG) Urine RBC Rare /HPF (0-2) Urine WBC 0 /HPF (0-4) Urine Squamous Epithelial Cells Mod /LPF Urine Transitional Epithelial Cells Occ /LPF Urine Bacteria 0 /HPF (0-FEW) Assessment/Plan Assessment/Plan IMP NEETU HYPERKALEMIA CVA VS MET ENCEPHALOPATHY HTN HX PLAN NEURO EVAL PENDING CHECK UA AND RENAL SONOGRAM HYDRATE KAYEXALATE PER ATTENDING WILL FOLLOW MACIE ROCHA MD Nov 19, 2018 15:04
[2018-11-19] MEDS ORDERED: HYDR-2867 PO (17:09)
[2018-11-19] MEDS ORDERED: ACET325T9 PO (17:09)
[2018-11-19] MEDS ORDERED: MAGN400T17 PO (17:09)
[2018-11-19] MEDS ORDERED: GLIP5TAB10 PO (17:09)
[2018-11-19] MEDS ORDERED: NITR0.4T22 SL (17:09)
[2018-11-19] MEDS ORDERED: ASPI-612 PO (17:09)
[2018-11-19] MEDS ORDERED: CARV25TA2 PO (17:09)
[2018-11-19] MEDS ORDERED: SIMV10TA3 PO (17:09)
[2018-11-19] MEDS ORDERED: MULT1TAB52 PO (17:09)
[2018-11-19] MEDS ORDERED: AMLO10TA6 PO (17:09)
[2018-11-19] MEDS ORDERED: SERT100T PO (17:09)
[2018-11-19] MEDS ORDERED: RANI150T2 PO (17:09)
[2018-11-19] MEDS ORDERED: MAGN400O7 PO (17:09)
[2018-11-19] MEDS ORDERED: FURO40TA4 PO (17:09)
[2018-11-19] MEDS ORDERED: CLOP75TA PO (17:09)
[2018-11-19 19:50] VITALS: BP 156/54
[2018-11-19] MEDS: FAMOTIDINE 20 MG/2 ML VIAL IVP SCH (21:05)
[2018-11-19 23:05] VITALS: BP 150/74
[2018-11-20 03:05] VITALS: BP 149/53
[2018-11-20] MEDS: DEXTROSE 50% 25 GM / 50ML DISP.SYRIN. IV PRN ×2 (05:02→13:13)
[2018-11-20] MEDS: HEPARIN for SUB-Q USE 5,000 UNIT/ML VIAL. SQ SCH ×3 (05:09→21:02)
[2018-11-20 05:25] LABS: CALCIUM 8.8 mg/dL (8.5-10.1); CREATININE 2.4 mg/dL (0.6-1.0); GFR 19.6
[2018-11-20 05:31] LABS: POTASSIUM 5.5 mmol/L (3.5-5.1)
[2018-11-20 07:00] VITALS: BP 101/56
[2018-11-20] MEDS: ASPIRIN 300 MG SUPP.RECT PR SCH (08:52)
--- NOTE | 2018-11-20 09:46 | RAD ---
Renal sonography Clinical indications: Acute kidney injury. FINDINGS: The longitudinal AP and transverse dimensions of the right kidney are 11.1 cm and 5.1 cm and 4.4 cm respectively. The longitudinal and AP and transverse dimensions of the left kidney are 10.8 cm and 5.2 cm and 4.7 cm respectively. No hydronephrosis or renal mass or perinephric fluid collection is seen on either side. Urinary bladder is not abnormally distended. No intraluminal echodensities or masses are seen IMPRESSION: No hydronephrosis is seen on either side. Electronically signed by: Abisai Shook MD (11/20/2018 9:41 AM) [facility]
--- NOTE | 2018-11-20 09:51 | RAD ---
Clinical indications: CVA. Duplex sonography of the cervical portion of both carotid arteries was performed including color flow imaging and spectral waveform analysis with flow velocity measurement and ascencio scale evaluation. Right side: Peak systolic flow velocity of the CCA is 99 cm/sec. Peak systolic flow velocity of the ICA is 105 cm/sec. Thus, the ICA/CCA ratio is 1.06. Peak end diastolic flow velocity of the ICA is 14 cm/sec. The peak systolic velocity of the ECA is 173 cm/sec. The peak systolic flow velocity of the subclavian artery is 307 cm/sec. Left side: Peak systolic flow velocity of the CCA is 98 cm/sec. Peak systolic flow velocity of the ICA is 100 cm/sec. Thus, the ICA/CCA ratio is 1.02. Peak end diastolic flow velocity of the ICA is 15 cm/sec. Peak systolic flow velocity of the ECA is 203 cm/sec. The peak systolic flow velocity of the subclavian artery is 211 cm/sec. There is mild plaque information within the carotid bulbs and ECA on both sides and right ICA which is less than 50 percent. Elevation of peak systolic flow velocity measurements within the ECA and subclavian arteries on both sides may be secondary to hypertension. Antegrade vertebral flow is seen bilaterally. The measurements were made using the NASCET criteria. Impression: Mild plaque formation is seen within the carotid bifurcations bilaterally.. Electronically signed by: Abisai Shook MD (11/20/2018 9:47 AM) [facility]
--- NOTE | 2018-11-20 10:46 | EKG ---
[facility] [address] [place] [address] Test Date: 2018-11-19 Test Time: 08:38:51 Pat Name: JULIETA HICKEY Department: Room: [facility] Gender: F Pediatric Surgeon: : 1940 Requested By: LEE FRAGOSO Order Number: [id number] Reading MD: Paul Toro Measurements Intervals [place] Rate: 60 P: [place]: QRS: -115 QRSD: 20 T: -51 QT: 480 QTc: 484 Interpretive Statements AV SEQUENTIAL PACED RHYTHM Electronically Signed On 11-24-2018 9:53:25 UNDER CUTTER by Paul Toro
[2018-11-20 11:00] VITALS: BP_SYST 100; BP_SYST 154; BP_DIAS 50; BP_DIAS 57
--- NOTE | 2018-11-20 11:36 | PDOC ---
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 Continue IVF while nothing by mouth Vitals Vitals Vital Signs Date Time Temp Pulse Resp B/P (MAP) Pulse Ox O2 Delivery O2 Flow Rate FiO2 11/20/18 08:00 Room Air 11/20/18 07:00 98.1 59 16 101/56 (71) 93 2.0 98.1 Physical Exam General: No acute distress, Other (CONFUSED) Heart: Regular rate Abdomen: Normal bowel sounds, Soft Extremities: No clubbing Skin: No breakdown Labs LABS Laboratory Tests Test 11/19/18 13:14 11/19/18 16:15 11/19/18 18:24 11/20/18 04:30 Urine Collection Type U cath Urine Color Yellow Urine Clarity Clear Urine pH 5.5 Urine Specific [place] 1.020 Urine Protein >=300 mg/dL (NEG-TRACE) Urine Glucose (UA) Negative mg/dL (NEG) Urine Ketones (Stick) Negative mg/dL (NEG) Urine Blood Negative (NEG) Urine Nitrite Negative (NEG) Urine Bilirubin Negative (NEG) Urine Urobilinogen Dipstick 1.0 mg/dL (0.2 mg/dL) Urine Leukocyte Esterase Negative (NEG) Urine RBC Rare /HPF (0-2) Urine WBC 0 /HPF (0-4) Urine Squamous Epithelial Cells Mod /LPF Urine Transitional Epithelial Cells Occ /LPF Urine Bacteria 0 /HPF (0-FEW) Potassium Level 5.7 mmol/L (3.5-5.1) 5.5 mmol/L (3.5-5.1) Glucose (Fingerstick) 71 mg/dL (70-99) Sodium Level 137 mmol/L (136-145) Chloride Level 105 mmol/L (98-107) Carbon Dioxide Level 21 mmol/L (21-32) Anion Gap 11 (6-14) Blood Urea Nitrogen 47 mg/dL (7-20) Creatinine 2.4 mg/dL (0.6-1.0) Estimated GFR (Cockcroft-Gault) 19.6 Glucose Level 55 mg/dL (70-99) Calcium Level 8.8 mg/dL (8.5-10.1) Test 11/20/18 04:51 11/20/18 06:00 Glucose (Fingerstick) 51 mg/dL (70-99) 81 mg/dL (70-99) Review of Systems Review of Systems Nonverbal Assessment and Plan Assessmemt and Plan Problems Medical Problems: (1) Altered mental status, unspecified Status: Acute (2) Right sided weakness Status: Acute Comment Review of Relevant I have reviewed the following items adal (where applicable) has been applied. Labs Laboratory Tests Test 11/19/18 08:35 11/19/18 08:41 11/19/18 13:14 11/19/18 16:15 White Blood Count 6.4 x10^3/uL (4.0-11.0) Red Blood Count 3.50 x10^6/uL (3.50-5.40) Hemoglobin 9.9 g/dL (12.0-15.5) Hematocrit 30.3 % (36.0-47.0) Mean Corpuscular Volume 87 fL (79-100) Mean Corpuscular Hemoglobin 28 pg (25-35) Mean Corpuscular Hemoglobin Concent 33 g/dL (31-37) Red Cell Distribution Width 17.4 % (11.5-14.5) Platelet Count 178 x10^3/uL (140-400) Neutrophils (%) (Auto) 76 % (31-73) Lymphocytes (%) (Auto) 14 % (24-48) Monocytes (%) (Auto) 8 % (0-9) Eosinophils (%) (Auto) 2 % (0-3) Basophils (%) (Auto) 1 % (0-3) Neutrophils # (Auto) 4.9 x10^3uL (1.8-7.7) Lymphocytes # (Auto) 0.9 x10^3/uL (1.0-4.8) Monocytes # (Auto) 0.5 x10^3/uL (0.0-1.1) Eosinophils # (Auto) 0.1 x10^3/uL (0.0-0.7) Basophils # (Auto) 0.0 x10^3/uL (0.0-0.2) Prothrombin Time 16.4 SEC (11.7-14.0) Prothromb Time International Ratio 1.4 (0.8-1.1) Sodium Level 138 mmol/L (136-145) Potassium Level 5.8 mmol/L (3.5-5.1) 5.7 mmol/L (3.5-5.1) Chloride Level 105 mmol/L (98-107) Carbon Dioxide Level 21 mmol/L (21-32) Anion Gap 12 (6-14) Blood Urea Nitrogen 47 mg/dL (7-20) Creatinine 2.5 mg/dL (0.6-1.0) Estimated GFR (Cockcroft-Gault) 18.7 BUN/Creatinine Ratio 19 (6-20) Glucose Level 125 mg/dL (70-99) Calcium Level 9.1 mg/dL (8.5-10.1) Magnesium Level 2.4 mg/dL (1.8-2.4) Total Bilirubin 0.7 mg/dL (0.2-1.0) Aspartate Amino Transf (AST/SGOT) 28 U/L (15-37) Alanine Aminotransferase (ALT/SGPT) 19 U/L (14-59) Alkaline Phosphatase 150 U/L (46-116) Troponin I Quantitative < 0.017 ng/mL (0.000-0.055) Total Protein 7.3 g/dL (6.4-8.2) Albumin 3.2 g/dL (3.4-5.0) Albumin/Globulin Ratio 0.8 (1.0-1.7) Glucose (Fingerstick) 121 mg/dL (70-99) Urine Collection Type U cath Urine Color Yellow Urine Clarity Clear Urine pH 5.5 Urine Specific [place] 1.020 Urine Protein >=300 mg/dL (NEG-TRACE) Urine Glucose (UA) Negative mg/dL (NEG) Urine Ketones (Stick) Negative mg/dL (NEG) Urine Blood Negative (NEG) Urine Nitrite Negative (NEG) Urine Bilirubin Negative (NEG) Urine Urobilinogen Dipstick 1.0 mg/dL (0.2 mg/dL) Urine Leukocyte Esterase Negative (NEG) Urine RBC Rare /HPF (0-2) Urine WBC 0 /HPF (0-4) Urine Squamous Epithelial Cells Mod /LPF Urine Transitional Epithelial Cells Occ /LPF Urine Bacteria 0 /HPF (0-FEW) Test 11/19/18 18:24 11/20/18 04:30 11/20/18 04:51 11/20/18 06:00 Glucose (Fingerstick) 71 mg/dL (70-99) 51 mg/dL (70-99) 81 mg/dL (70-99) Sodium Level 137 mmol/L (136-145) Potassium Level 5.5 mmol/L (3.5-5.1) Chloride Level 105 mmol/L (98-107) Carbon Dioxide Level 21 mmol/L (21-32) Anion Gap 11 (6-14) Blood Urea Nitrogen 47 mg/dL (7-20) Creatinine 2.4 mg/dL (0.6-1.0) Estimated GFR (Cockcroft-Gault) 19.6 Glucose Level 55 mg/dL (70-99) Calcium Level 8.8 mg/dL (8.5-10.1) Laboratory Tests Test 11/19/18 13:14 11/19/18 16:15 11/19/18 18:24 11/20/18 04:30 Urine Collection Type U cath Urine Color Yellow Urine Clarity Clear Urine pH 5.5 Urine Specific [place] 1.020 Urine Protein >=300 mg/dL (NEG-TRACE) Urine Glucose (UA) Negative mg/dL (NEG) Urine Ketones (Stick) Negative mg/dL (NEG) Urine Blood Negative (NEG) Urine Nitrite Negative (NEG) Urine Bilirubin Negative (NEG) Urine Urobilinogen Dipstick 1.0 mg/dL (0.2 mg/dL) Urine Leukocyte Esterase Negative (NEG) Urine RBC Rare /HPF (0-2) Urine WBC 0 /HPF (0-4) Urine Squamous Epithelial Cells Mod /LPF Urine Transitional Epithelial Cells Occ /LPF Urine Bacteria 0 /HPF (0-FEW) Potassium Level 5.7 mmol/L (3.5-5.1) 5.5 mmol/L (3.5-5.1) Glucose (Fingerstick) 71 mg/dL (70-99) Sodium Level 137 mmol/L (136-145) Chloride Level 105 mmol/L (98-107) Carbon Dioxide Level 21 mmol/L (21-32) Anion Gap 11 (6-14) Blood Urea Nitrogen 47 mg/dL (7-20) Creatinine 2.4 mg/dL (0.6-1.0) Estimated GFR (Cockcroft-Gault) 19.6 Glucose Level 55 mg/dL (70-99) Calcium Level 8.8 mg/dL (8.5-10.1) Test 11/20/18 04:51 11/20/18 06:00 Glucose (Fingerstick) 51 mg/dL (70-99) 81 mg/dL (70-99) Medications Current Medications Sodium Chloride 1,000 ml @ 100 mls/hr Q10H IV Last administered on 11/19/18at 09:54; Start 11/19/18 at 08:40; Stop 11/19/18 at 18:39; Status DC Naloxone HCl (Narcan) 0.8 mg 1X ONCE IV Last administered on 11/19/18at 10:02; Start 11/19/18 at 09:15; Stop 11/19/18 at 09:16; Status DC Insulin Human Regular (HumuLIN R VIAL) 10 unit 1X ONCE IV Last administered on 11/19/18at 10:01; Start 11/19/18 at 09:45; Stop 11/19/18 at 09:46; Status DC Dextrose (Dextrose 50%-Water Syringe) 25 gm 1X ONCE IV Last administered on at 10:02; Start 11/19/18 at 09:45; Stop 11/19/18 at 09:46; Status DC Sodium Bicarbonate 50 meq/Sodium Chloride 1,050 ml @ 125 mls/hr 1X ONCE IV Last administered on 11/19/18at 09:52; Start 11/19/18 at 10:00; Stop 11/19/18 at 18:23; Status DC Aspirin (Xander Aspirin) 325 mg 1X ONCE PO ; Start 11/19/18 at 10:15; Stop 11/19 at 10:16; Status DC Famotidine (Pepcid Vial) 20 mg QHS IVP Last administered on 11/19/18at 21:05; Start 11/19/18 at 21:00 Heparin Sodium (Porcine) (Heparin Sodium) 5,000 unit Q8HRS SQ Last administered on 11/20/18at 05:09; Start 11/19/18 at 14:00 Acetaminophen (Tylenol) 500 mg PRN Q6HRS PRN PO HEADACHE / TEMP; Start at 11:00 Ondansetron HCl (Zofran) 4 mg PRN Q6HRS PRN IV NAUSEA/VOMITING; Start 11/19/18 at 11:00 Morphine Sulfate (Morphine Sulfate) 1 mg PRN Q2HR PRN IV PAIN; Start 11/19/18 at 11:00 Aspirin (Aspirin) 300 mg DAILY [place] Last administered on 11/20/18at 08:52; Start 11/20/18 at 09:00 Dextrose (Dextrose 50%-Water Syringe) 12.5 gm PRN Q15MIN PRN IV SEE COMMENTS Last administered on 11/20/18at 05:02; Start 11/20/18 at 05:00 Active Scripts Active Reported Milk Of Magnesia (Magnesium Hydroxide) 400 Mg/5 Ml Oral.susp 30 Ml PO PRN DAILY PRN NITROGLYCERIN SubLingual (Nitroglycerin) 0.4 Mg Tab.subl 0.4 Mg SL PRN Q5MIN PRN Simvastatin 10 Mg Tablet 1 Tab PO QHS Clopidogrel (Clopidogrel Bisulfate) 75 Mg Tablet 1 Tab PO DAILY Aspirin Ec (Aspirin) 81 Mg Tablet.dr 1 Tab PO DAILY Tylenol (Acetaminophen) 325 Mg Tablet 2 Tab PO PRN Q4HRS PRN Glipizide 5 Mg Tablet 1 Tab PO DAILY Magox 400 (Magnesium Oxide) 400 Mg Tablet 400 Mg PO DAILY Ranitidine Hcl 150 Mg Tablet 1 Tab PO DAILY Hydralazine Hcl 10 Mg Tablet 1 Tab PO QID Amlodipine Besylate 10 Mg Tablet 10 Mg PO DAILY Carvedilol 25 Mg Tablet 25 Mg PO BIDWMEALS Multivitamins (Multivitamin) 1 Each Tablet 1 Tab PO DAILY Zoloft (Sertraline Hcl) 100 Mg Tablet 1 Tab PO DAILY Furosemide 40 Mg Tablet 1 Tab PO DAILY Vitals/I & O Vital Sign - Last 24 Hours 11/19/18 11/19/18 11/19/18 11/19/18 11:30 11:45 12:00 12:15 Pulse 60 60 61 59 Resp 17 20 20 20 Pulse Ox 100 100 100 100 11/19/18 11/19/18 11/19/18 11/19/18 12:30 12:45 13:00 13:15 Pulse 69 59 62 65 Resp 20 20 21 20 Pulse Ox 100 100 100 100 11/19/18 11/19/18 11/19/18 11/19/18 13:30 14:30 15:00 19:50 Temp 97.7 98.1 97.7 98.1 Pulse 59 85 90 Resp 20 20 18 B/P (MAP) 146/56 (86) 156/54 (88) Pulse Ox 100 98 95 O2 Delivery Nasal Cannula O2 Flow Rate 2.0 11/19/18 11/19/18 11/20/18 11/20/18 20:00 23:05 03:05 07:00 Temp 98.1 98.0 98.1 98.1 98.0 98.1 Pulse 78 60 59 Resp 20 18 16 B/P (MAP) 150/74 (99) 149/53 (85) 101/56 (71) Pulse Ox 98 93 93 O2 Delivery Nasal Cannula Nasal Cannula Nasal Cannula Nasal Cannula O2 Flow Rate 2.0 2.0 2.0 2.0 11/20/18 08:00 O2 Delivery Room Air Intake and Output 11/19/18 11/19/18 11/20/18 15:01 23:01 07:01 Intake Total 0 ml 0 ml Balance 0 ml 0 ml PACO CHAO MD Nov 20, 2018 11:36
--- NOTE | 2018-11-20 11:52 | PDOC ---
Renal-Progress Notes Subjective Notes Notes CONFUSED History of Present Illness Hx of present illness NO CHANGE Vitals Vitals Vital Signs Date Time Temp Pulse Resp B/P (MAP) Pulse Ox O2 Delivery O2 Flow Rate FiO2 11/20/18 08:00 Room Air 11/20/18 07:00 98.1 59 16 101/56 (71) 93 2.0 98.1 Weight Weight [ ] I.O. Intake and Output Intake and Output 11/20/18 07:01 Intake Total 0 ml Balance 0 ml Intake Oral 0 ml # Voids 3 Labs Labs Laboratory Tests Test 11/19/18 13:14 11/19/18 16:15 11/19/18 18:24 11/20/18 04:30 Urine Collection Type U cath Urine Color Yellow Urine Clarity Clear Urine pH 5.5 Urine Specific [place] 1.020 Urine Protein >=300 mg/dL (NEG-TRACE) Urine Glucose (UA) Negative mg/dL (NEG) Urine Ketones (Stick) Negative mg/dL (NEG) Urine Blood Negative (NEG) Urine Nitrite Negative (NEG) Urine Bilirubin Negative (NEG) Urine Urobilinogen Dipstick 1.0 mg/dL (0.2 mg/dL) Urine Leukocyte Esterase Negative (NEG) Urine RBC Rare /HPF (0-2) Urine WBC 0 /HPF (0-4) Urine Squamous Epithelial Cells Mod /LPF Urine Transitional Epithelial Cells Occ /LPF Urine Bacteria 0 /HPF (0-FEW) Potassium Level 5.7 mmol/L (3.5-5.1) 5.5 mmol/L (3.5-5.1) Glucose (Fingerstick) 71 mg/dL (70-99) Sodium Level 137 mmol/L (136-145) Chloride Level 105 mmol/L (98-107) Carbon Dioxide Level 21 mmol/L (21-32) Anion Gap 11 (6-14) Blood Urea Nitrogen 47 mg/dL (7-20) Creatinine 2.4 mg/dL (0.6-1.0) Estimated GFR (Cockcroft-Gault) 19.6 Glucose Level 55 mg/dL (70-99) Calcium Level 8.8 mg/dL (8.5-10.1) Test 11/20/18 04:51 11/20/18 06:00 Glucose (Fingerstick) 51 mg/dL (70-99) 81 mg/dL (70-99) Review of Systems Constitutional: yes: other (UNABLE TO OBTAIN) Physical Exam General Appearance: no apparent distress Skin: warm Respiratory: decreased breath sounds Heart: S1S2 Abdomen: soft, bowel sounds present Genitourinary: bladder flat Extremities: pulses present Neurology: confused, non-verbal Assessment Assessment IMP RIGHT SIDED WEAKNESS ANEMIA HTN DM II HYPERKALEMIA SUSPECT CKD STAGE 3 TO 4 LUNG INFILTRATES PLAN RENAL SONO NEG-UA NEG FOR NEPHRITIS AGREE WITH KAYEXALATE OFF IVF'S NOW CONSIDER ANTIBIOTICS START ARANESP NEURO EVAL MACIE ROCHA MD Nov 20, 2018 11:52
[2018-11-20] MEDS ORDERED: SODIUM POLYSTYRENE SULFONATE 15 GM/60 ML ORAL.SUSP. PR ONE (12:00)
[2018-11-20 15:00] VITALS: BP 148/48
[2018-11-20] MEDS: cefTRIAXone IV Push 1 GM VIAL. IVP SCH (16:01)
--- NOTE | 2018-11-20 18:46 | PDOC ---
PROGRESS NOTES Assessment Problems Medical Problems: (1) Altered mental status, unspecified Status: Acute (2) Right sided weakness Status: Acute Plan This patient is 78-year-old woman who presented to from the facility with altered mental status. Patient lives at assisted living facility. Information obtained from multiple family members at bedside. Patient was not feeling well for last over 1 day. Patient at this morning for 30 was more confused patient does have previous history of stroke with aphasia and ambulates with a wheelchair at baseline. Patient had a chest x-ray showing possible infiltrate. Patient also has elevated creatinine on presentation. 78-year-old female with past medical history of multiple medical problems with previous history of stroke patient ambulates with wheelchair at baseline. Patient did not meet criteria for IV TPA patient was outside the window. Encephalopathy multifactorial we will evaluate for any acute intracranial process. pt is currently being treated for acute on chronic kidney disease, hyperkalemia, aspiration pneumonia. She had a CT scan done in emergency room which did not show any evidence of acute bleed. Changes noted for chronic small vessel ischemic disease. Old cortical stroke noted in right parietal lobe. Changes also noted for generalized atrophy. Changes on dual antiplatelet. MRI brain may not be done due to current medical condition. Check 2-D echo, Carotid Doppler, check lipid profile, statin, PTOT speech evaluation. Check for infectious or metabolic etiology. Continue medical management. Plan discussed with multiple family members at bedside. Subjective no acute events, Family at bedside. Objective Vital Signs Date Time Temp Pulse Resp B/P (MAP) Pulse Ox O2 Delivery O2 Flow Rate FiO2 11/20/18 15:00 100.4 60 16 148/48 (81) 93 Room Air 100.4 11/20/18 11:00 2.0 Intake and Output 11/20/18 07:01 Intake Total 0 ml Balance 0 ml Intake Oral 0 ml # Voids 3 PHYSICAL EXAM PHYSICAL EXAMINATION: General appearance is no acute distress. HEENT: Normocephalic and nontraumatic. Neck is supple. No lymphadenopathy. No crepitus. Cardiovascular: S1, S2, regular rate and rhythm. Pulmonary: Clear to auscultation bilaterally. Abdomen: Bowel sounds are positive. Abdomen is soft, nontender, and nondistended. NEUROLOGICAL EXAMINATION: Alert Able to follow simple commands. PERRL. EOMI. CN: no focal findings Physiatry. Muscle tone: within normal. Muscle strength: Able to move upper extremities lower extremity minimum. DTR: 1 Plantar reflex: Flexor response bilaterally Gait: not examined in bed. Sensory exam: no abnormal findings. Review of Relevant I have reviewed the following items adal (where applicable) has been applied. Labs Laboratory Tests Test 11/19/18 08:35 11/19/18 08:41 11/19/18 13:14 11/19/18 16:15 White Blood Count 6.4 x10^3/uL (4.0-11.0) Red Blood Count 3.50 x10^6/uL (3.50-5.40) Hemoglobin 9.9 g/dL (12.0-15.5) Hematocrit 30.3 % (36.0-47.0) Mean Corpuscular Volume 87 fL (79-100) Mean Corpuscular Hemoglobin 28 pg (25-35) Mean Corpuscular Hemoglobin Concent 33 g/dL (31-37) Red Cell Distribution Width 17.4 % (11.5-14.5) Platelet Count 178 x10^3/uL (140-400) Neutrophils (%) (Auto) 76 % (31-73) Lymphocytes (%) (Auto) 14 % (24-48) Monocytes (%) (Auto) 8 % (0-9) Eosinophils (%) (Auto) 2 % (0-3) Basophils (%) (Auto) 1 % (0-3) Neutrophils # (Auto) 4.9 x10^3uL (1.8-7.7) Lymphocytes # (Auto) 0.9 x10^3/uL (1.0-4.8) Monocytes # (Auto) 0.5 x10^3/uL (0.0-1.1) Eosinophils # (Auto) 0.1 x10^3/uL (0.0-0.7) Basophils # (Auto) 0.0 x10^3/uL (0.0-0.2) Prothrombin Time 16.4 SEC (11.7-14.0) Prothromb Time International Ratio 1.4 (0.8-1.1) Sodium Level 138 mmol/L (136-145) Potassium Level 5.8 mmol/L (3.5-5.1) 5.7 mmol/L (3.5-5.1) Chloride Level 105 mmol/L (98-107) Carbon Dioxide Level 21 mmol/L (21-32) Anion Gap 12 (6-14) Blood Urea Nitrogen 47 mg/dL (7-20) Creatinine 2.5 mg/dL (0.6-1.0) Estimated GFR (Cockcroft-Gault) 18.7 BUN/Creatinine Ratio 19 (6-20) Glucose Level 125 mg/dL (70-99) Calcium Level 9.1 mg/dL (8.5-10.1) Magnesium Level 2.4 mg/dL (1.8-2.4) Total Bilirubin 0.7 mg/dL (0.2-1.0) Aspartate Amino Transf (AST/SGOT) 28 U/L (15-37) Alanine Aminotransferase (ALT/SGPT) 19 U/L (14-59) Alkaline Phosphatase 150 U/L (46-116) Troponin I Quantitative < 0.017 ng/mL (0.000-0.055) Total Protein 7.3 g/dL (6.4-8.2) Albumin 3.2 g/dL (3.4-5.0) Albumin/Globulin Ratio 0.8 (1.0-1.7) Glucose (Fingerstick) 121 mg/dL (70-99) Urine Collection Type U cath Urine Color Yellow Urine Clarity Clear Urine pH 5.5 Urine Specific [place] 1.020 Urine Protein >=300 mg/dL (NEG-TRACE) Urine Glucose (UA) Negative mg/dL (NEG) Urine Ketones (Stick) Negative mg/dL (NEG) Urine Blood Negative (NEG) Urine Nitrite Negative (NEG) Urine Bilirubin Negative (NEG) Urine Urobilinogen Dipstick 1.0 mg/dL (0.2 mg/dL) Urine Leukocyte Esterase Negative (NEG) Urine RBC Rare /HPF (0-2) Urine WBC 0 /HPF (0-4) Urine Squamous Epithelial Cells Mod /LPF Urine Transitional Epithelial Cells Occ /LPF Urine Bacteria 0 /HPF (0-FEW) Test 11/19/18 18:24 11/19/18 18:50 11/20/18 04:30 11/20/18 04:51 Glucose (Fingerstick) 71 mg/dL (70-99) 51 mg/dL (70-99) Nasal Screen MRSA (PCR) Positive (Negative) Sodium Level 137 mmol/L (136-145) Potassium Level 5.5 mmol/L (3.5-5.1) Chloride Level 105 mmol/L (98-107) Carbon Dioxide Level 21 mmol/L (21-32) Anion Gap 11 (6-14) Blood Urea Nitrogen 47 mg/dL (7-20) Creatinine 2.4 mg/dL (0.6-1.0) Estimated GFR (Cockcroft-Gault) 19.6 Glucose Level 55 mg/dL (70-99) Calcium Level 8.8 mg/dL (8.5-10.1) Test 11/20/18 06:00 11/20/18 11:00 Glucose (Fingerstick) 81 mg/dL (70-99) 67 mg/dL (70-99) Laboratory Tests Test 11/19/18 18:50 11/20/18 04:30 11/20/18 04:51 11/20/18 06:00 Nasal Screen MRSA (PCR) Positive (Negative) Sodium Level 137 mmol/L (136-145) Potassium Level 5.5 mmol/L (3.5-5.1) Chloride Level 105 mmol/L (98-107) Carbon Dioxide Level 21 mmol/L (21-32) Anion Gap 11 (6-14) Blood Urea Nitrogen 47 mg/dL (7-20) Creatinine 2.4 mg/dL (0.6-1.0) Estimated GFR (Cockcroft-Gault) 19.6 Glucose Level 55 mg/dL (70-99) Calcium Level 8.8 mg/dL (8.5-10.1) Glucose (Fingerstick) 51 mg/dL (70-99) 81 mg/dL (70-99) Test 11/20/18 11:00 Glucose (Fingerstick) 67 mg/dL (70-99) Medications Current Medications Sodium Chloride 1,000 ml @ 100 mls/hr Q10H IV Last administered on 11/19/18at 09:54; Start 11/19/18 at 08:40; Stop 11/19/18 at 18:39; Status DC Naloxone HCl (Narcan) 0.8 mg 1X ONCE IV Last administered on 11/19/18at 10:02; Start 11/19/18 at 09:15; Stop 11/19/18 at 09:16; Status DC Insulin Human Regular (HumuLIN R VIAL) 10 unit 1X ONCE IV Last administered on 11/19/18at 10:01; Start 11/19/18 at 09:45; Stop 11/19/18 at 09:46; Status DC Dextrose (Dextrose 50%-Water Syringe) 25 gm 1X ONCE IV Last administered on at 10:02; Start 11/19/18 at 09:45; Stop 11/19/18 at 09:46; Status DC Sodium Bicarbonate 50 meq/Sodium Chloride 1,050 ml @ 125 mls/hr 1X ONCE IV Last administered on 11/19/18at 09:52; Start 11/19/18 at 10:00; Stop 11/19/18 at 18:23; Status DC Aspirin (Xander Aspirin) 325 mg 1X ONCE PO ; Start 11/19/18 at 10:15; Stop 11/19 at 10:16; Status DC Famotidine (Pepcid Vial) 20 mg QHS IVP Last administered on 11/19/18at 21:05; Start 11/19/18 at 21:00 Heparin Sodium (Porcine) (Heparin Sodium) 5,000 unit Q8HRS SQ Last administered on 11/20/18at 13:23; Start 11/19/18 at 14:00 Acetaminophen (Tylenol) 500 mg PRN Q6HRS PRN PO HEADACHE / TEMP; Start at 11:00 Ondansetron HCl (Zofran) 4 mg PRN Q6HRS PRN IV NAUSEA/VOMITING; Start 11/19/18 at 11:00 Morphine Sulfate (Morphine Sulfate) 1 mg PRN Q2HR PRN IV PAIN; Start 11/19/18 at 11:00 Aspirin (Aspirin) 300 mg DAILY [place] Last administered on 11/20/18at 08:52; Start 11/20/18 at 09:00 Dextrose (Dextrose 50%-Water Syringe) 12.5 gm PRN Q15MIN PRN IV SEE COMMENTS Last administered on 11/20/18at 13:13; Start 11/20/18 at 05:00 Sodium Polystyrene Sulfonate (Kayexalate) 30 gm 1X ONCE [place] Last administered on 11/20/18at 15:29; Start 11/20/18 at 12:00; Stop 11/20/18 at 12:01; Status DC Ceftriaxone Sodium (Rocephin) 1 gm Q24H IVP Last administered on 11/20/18at 16: 01; Start 11/20/18 at 15:00 Active Scripts Active Reported Milk Of Magnesia (Magnesium Hydroxide) 400 Mg/5 Ml Oral.susp 30 Ml PO PRN DAILY PRN NITROGLYCERIN SubLingual (Nitroglycerin) 0.4 Mg Tab.subl 0.4 Mg SL PRN Q5MIN PRN Simvastatin 10 Mg Tablet 1 Tab PO QHS Clopidogrel (Clopidogrel Bisulfate) 75 Mg Tablet 1 Tab PO DAILY Aspirin Ec (Aspirin) 81 Mg Tablet.dr 1 Tab PO DAILY Tylenol (Acetaminophen) 325 Mg Tablet 2 Tab PO PRN Q4HRS PRN Glipizide 5 Mg Tablet 1 Tab PO DAILY Magox 400 (Magnesium Oxide) 400 Mg Tablet 400 Mg PO DAILY Ranitidine Hcl 150 Mg Tablet 1 Tab PO DAILY Hydralazine Hcl 10 Mg Tablet 1 Tab PO QID Amlodipine Besylate 10 Mg Tablet 10 Mg PO DAILY Carvedilol 25 Mg Tablet 25 Mg PO BIDWMEALS Multivitamins (Multivitamin) 1 Each Tablet 1 Tab PO DAILY Zoloft (Sertraline Hcl) 100 Mg Tablet 1 Tab PO DAILY Furosemide 40 Mg Tablet 1 Tab PO DAILY Vitals/I & O Vital Sign - Last 24 Hours 11/19/18 11/19/18 11/19/18 11/20/18 19:50 20:00 23:05 03:05 Temp 98.1 98.1 98.0 98.1 98.1 98.0 Pulse 90 78 60 Resp 18 20 18 B/P (MAP) 156/54 (88) 150/74 (99) 149/53 (85) Pulse Ox 95 98 93 O2 Delivery Nasal Cannula Nasal Cannula Nasal Cannula O2 Flow Rate 2.0 2.0 2.0 11/20/18 11/20/18 11/20/18 11/20/18 07:00 08:00 11:00 15:00 Temp 98.1 98.6 100.4 98.1 98.6 100.4 Pulse 59 59 60 Resp 16 16 16 B/P (MAP) 101/56 (71) 154/50 (84) 148/48 (81) Pulse Ox 93 98 93 O2 Delivery Nasal Cannula Room Air Nasal Cannula Room Air O2 Flow Rate 2.0 2.0 Intake and Output 11/19/18 11/19/18 11/20/18 15:01 23:01 07:01 Intake Total 0 ml 0 ml Balance 0 ml 0 ml DELMA GARCIA MD Nov 20, 2018 18:46
[2018-11-20 19:05] VITALS: BP 143/50
[2018-11-20] MEDS: FAMOTIDINE 20 MG/2 ML VIAL IVP SCH (20:55)
[2018-11-20 23:08] VITALS: BP 152/52
[2018-11-21 03:42] VITALS: BP 155/51
[2018-11-21 05:29] LABS: CREATININE 2.4 mg/dL (0.6-1.0); GFR 19.6; POTASSIUM 4.8 mmol/L (3.5-5.1)
[2018-11-21] MEDS: DEXTROSE 50% 25 GM / 50ML DISP.SYRIN. IV PRN (05:51)
[2018-11-21] MEDS: HEPARIN for SUB-Q USE 5,000 UNIT/ML VIAL. SQ SCH ×3 (06:01→21:10)
[2018-11-21 07:31] VITALS: BP 164/72
--- NOTE | 2018-11-21 08:45 | NUR ---
wound care patient assessed for consult of wound care. patient has multiple areas of scratches, recommendations of applying lotion daily. applied lotion at this time. patient needs to be turning every 2 hours, patient turned to the left side at this time with heels in an off-loading position. wound care is signing off at this time, please reconsult if the integumentary assessment changes.
[2018-11-21] MEDS: ASPIRIN 300 MG SUPP.RECT PR SCH (09:00)
--- NOTE | 2018-11-21 09:30 | NUR ---
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 No events noted. Pt AV paced. Received orders from Dr Hopkins to remove cardiac monitoring.
--- NOTE | 2018-11-21 09:49 | NUR ---
IP: Pt is mrsa screen + requiring contact precautions.
[2018-11-21 10:55] LABS: CHOLESTEROL/HDL RATIO 4.3
[2018-11-21 11:00] VITALS: BP 128/41
--- NOTE | 2018-11-21 12:37 | PDOC ---
PROGRESS NOTES Chief Complaint Chief Complaint CC: Met enCephalopathy differentials include aspiration versus rule out CVA versus rule out hvwrupdmwf-cdaeuox-ptsgnv workup Fall precaution Nothing by mouth for now until [employer] eval or mentation improves AK I ?CK D with hyperkalemia Anemia normocytic [place] resident Full code History of Present Illness History of Present Illness Patient seen and examined. Patient was asleep during exam. Vitals Vitals Vital Signs Date Time Temp Pulse Resp B/P (MAP) Pulse Ox O2 Delivery O2 Flow Rate FiO2 11/21/18 11:00 98.9 61 20 128/41 (70) 95 Room Air 98.9 11/21/18 08:00 2.0 Physical Exam General: No acute distress, Other (not easilt arousable) Heart: Regular rate Abdomen: Normal bowel sounds, Soft Extremities: No clubbing Skin: No breakdown Labs LABS Laboratory Tests Test 11/20/18 19:08 11/21/18 03:10 11/21/18 05:41 11/21/18 09:56 Glucose (Fingerstick) 76 mg/dL (70-99) 62 mg/dL (70-99) 77 mg/dL (70-99) Sodium Level 141 mmol/L (136-145) Potassium Level 4.8 mmol/L (3.5-5.1) Chloride Level 108 mmol/L (98-107) Carbon Dioxide Level 20 mmol/L (21-32) Anion Gap 13 (6-14) Blood Urea Nitrogen 43 mg/dL (7-20) Creatinine 2.4 mg/dL (0.6-1.0) Estimated GFR (Cockcroft-Gault) 19.6 Glucose Level 68 mg/dL (70-99) Calcium Level 9.0 mg/dL (8.5-10.1) Triglycerides Level 93 mg/dL (0-150) Cholesterol Level 116 mg/dL (0-200) LDL Cholesterol, Calculated 70 mg/dL (0-100) VLDL Cholesterol, Calculated 19 mg/dL (0-40) Non-HDL Cholesterol Calculated 89 mg/dL (0-129) HDL Cholesterol 27 mg/dL (40-60) Cholesterol/HDL Ratio 4.3 Review of Systems Review of Systems Heart: denies chest pain Lung: denies soa Assessment and Plan Assessmemt and Plan Assessment: AMS Met enCephalopathy differentials include aspiration versus rule out CVA versus rule out txztbcmlmj-hfmeeor-uiwbgo workup Fall precaution Nothing by mouth for now until [employer] eval or mentation improves AK I ?CK D with hyperkalemia Anemia normocytic [place] resident Full code Plan: kayexylate a per rectum now Appreciate renal BMP tomorrow [employer] eval pending Continue IVF while nothing by mouth PPN Speech PT/OT Monitor blood sugar Consult palliative care Comment Review of Relevant I have reviewed the following items adal (where applicable) has been applied. Labs Laboratory Tests Test 11/19/18 13:14 11/19/18 16:15 11/19/18 18:24 11/19/18 18:50 Urine Collection Type U cath Urine Color Yellow Urine Clarity Clear Urine pH 5.5 Urine Specific [place] 1.020 Urine Protein >=300 mg/dL (NEG-TRACE) Urine Glucose (UA) Negative mg/dL (NEG) Urine Ketones (Stick) Negative mg/dL (NEG) Urine Blood Negative (NEG) Urine Nitrite Negative (NEG) Urine Bilirubin Negative (NEG) Urine Urobilinogen Dipstick 1.0 mg/dL (0.2 mg/dL) Urine Leukocyte Esterase Negative (NEG) Urine RBC Rare /HPF (0-2) Urine WBC 0 /HPF (0-4) Urine Squamous Epithelial Cells Mod /LPF Urine Transitional Epithelial Cells Occ /LPF Urine Bacteria 0 /HPF (0-FEW) Potassium Level 5.7 mmol/L (3.5-5.1) Glucose (Fingerstick) 71 mg/dL (70-99) Nasal Screen MRSA (PCR) Positive (Negative) Test 11/20/18 04:30 11/20/18 04:51 11/20/18 06:00 11/20/18 11:00 Sodium Level 137 mmol/L (136-145) Potassium Level 5.5 mmol/L (3.5-5.1) Chloride Level 105 mmol/L (98-107) Carbon Dioxide Level 21 mmol/L (21-32) Anion Gap 11 (6-14) Blood Urea Nitrogen 47 mg/dL (7-20) Creatinine 2.4 mg/dL (0.6-1.0) Estimated GFR (Cockcroft-Gault) 19.6 Glucose Level 55 mg/dL (70-99) Calcium Level 8.8 mg/dL (8.5-10.1) Glucose (Fingerstick) 51 mg/dL (70-99) 81 mg/dL (70-99) 67 mg/dL (70-99) Test 11/20/18 19:08 11/21/18 03:10 11/21/18 05:41 11/21/18 09:56 Glucose (Fingerstick) 76 mg/dL (70-99) 62 mg/dL (70-99) 77 mg/dL (70-99) Sodium Level 141 mmol/L (136-145) Potassium Level 4.8 mmol/L (3.5-5.1) Chloride Level 108 mmol/L (98-107) Carbon Dioxide Level 20 mmol/L (21-32) Anion Gap 13 (6-14) Blood Urea Nitrogen 43 mg/dL (7-20) Creatinine 2.4 mg/dL (0.6-1.0) Estimated GFR (Cockcroft-Gault) 19.6 Glucose Level 68 mg/dL (70-99) Calcium Level 9.0 mg/dL (8.5-10.1) Triglycerides Level 93 mg/dL (0-150) Cholesterol Level 116 mg/dL (0-200) LDL Cholesterol, Calculated 70 mg/dL (0-100) VLDL Cholesterol, Calculated 19 mg/dL (0-40) Non-HDL Cholesterol Calculated 89 mg/dL (0-129) HDL Cholesterol 27 mg/dL (40-60) Cholesterol/HDL Ratio 4.3 Laboratory Tests Test 11/20/18 19:08 11/21/18 03:10 11/21/18 05:41 11/21/18 09:56 Glucose (Fingerstick) 76 mg/dL (70-99) 62 mg/dL (70-99) 77 mg/dL (70-99) Sodium Level 141 mmol/L (136-145) Potassium Level 4.8 mmol/L (3.5-5.1) Chloride Level 108 mmol/L (98-107) Carbon Dioxide Level 20 mmol/L (21-32) Anion Gap 13 (6-14) Blood Urea Nitrogen 43 mg/dL (7-20) Creatinine 2.4 mg/dL (0.6-1.0) Estimated GFR (Cockcroft-Gault) 19.6 Glucose Level 68 mg/dL (70-99) Calcium Level 9.0 mg/dL (8.5-10.1) Triglycerides Level 93 mg/dL (0-150) Cholesterol Level 116 mg/dL (0-200) LDL Cholesterol, Calculated 70 mg/dL (0-100) VLDL Cholesterol, Calculated 19 mg/dL (0-40) Non-HDL Cholesterol Calculated 89 mg/dL (0-129) HDL Cholesterol 27 mg/dL (40-60) Cholesterol/HDL Ratio 4.3 Medications Current Medications Sodium Chloride 1,000 ml @ 100 mls/hr Q10H IV Last administered on 11/19/18at 09:54; Start 11/19/18 at 08:40; Stop 11/19/18 at 18:39; Status DC Naloxone HCl (Narcan) 0.8 mg 1X ONCE IV Last administered on 11/19/18at 10:02; Start 11/19/18 at 09:15; Stop 11/19/18 at 09:16; Status DC Insulin Human Regular (HumuLIN R VIAL) 10 unit 1X ONCE IV Last administered on 11/19/18at 10:01; Start 11/19/18 at 09:45; Stop 11/19/18 at 09:46; Status DC Dextrose (Dextrose 50%-Water Syringe) 25 gm 1X ONCE IV Last administered on at 10:02; Start 11/19/18 at 09:45; Stop 11/19/18 at 09:46; Status DC Sodium Bicarbonate 50 meq/Sodium Chloride 1,050 ml @ 125 mls/hr 1X ONCE IV Last administered on 11/19/18at 09:52; Start 11/19/18 at 10:00; Stop 11/19/18 at 18:23; Status DC Aspirin (Xander Aspirin) 325 mg 1X ONCE PO ; Start 11/19/18 at 10:15; Stop 11/19 at 10:16; Status DC Famotidine (Pepcid Vial) 20 mg QHS IVP Last administered on 11/20/18at 20:55; Start 11/19/18 at 21:00 Heparin Sodium (Porcine) (Heparin Sodium) 5,000 unit Q8HRS SQ Last administered on 11/21/18at 06:01; Start 11/19/18 at 14:00 Acetaminophen (Tylenol) 500 mg PRN Q6HRS PRN PO HEADACHE / TEMP; Start at 11:00 Ondansetron HCl (Zofran) 4 mg PRN Q6HRS PRN IV NAUSEA/VOMITING; Start 11/19/18 at 11:00 Morphine Sulfate (Morphine Sulfate) 1 mg PRN Q2HR PRN IV PAIN; Start 11/19/18 at 11:00 Aspirin (Aspirin) 300 mg DAILY UT Last administered on 11/20/18at 08:52; Start 11/20/18 at 09:00 Dextrose (Dextrose 50%-Water Syringe) 12.5 gm PRN Q15MIN PRN IV SEE COMMENTS Last administered on 11/21/18at 05:51; Start 11/20/18 at 05:00 Sodium Polystyrene Sulfonate (Kayexalate) 30 gm 1X ONCE UT Last administered on 11/20/18at 15:29; Start 11/20/18 at 12:00; Stop 11/20/18 at 12:01; Status DC Ceftriaxone Sodium (Rocephin) 1 gm Q24H IVP Last administered on 11/20/18at 16: 01; Start 11/20/18 at 15:00 Active Scripts Active Reported Milk Of Magnesia (Magnesium Hydroxide) 400 Mg/5 Ml Oral.susp 30 Ml PO PRN DAILY PRN NITROGLYCERIN SubLingual (Nitroglycerin) 0.4 Mg Tab.subl 0.4 Mg SL PRN Q5MIN PRN Simvastatin 10 Mg Tablet 1 Tab PO QHS Clopidogrel (Clopidogrel Bisulfate) 75 Mg Tablet 1 Tab PO DAILY Aspirin Ec (Aspirin) 81 Mg Tablet.dr 1 Tab PO DAILY Tylenol (Acetaminophen) 325 Mg Tablet 2 Tab PO PRN Q4HRS PRN Glipizide 5 Mg Tablet 1 Tab PO DAILY Magox 400 (Magnesium Oxide) 400 Mg Tablet 400 Mg PO DAILY Ranitidine Hcl 150 Mg Tablet 1 Tab PO DAILY Hydralazine Hcl 10 Mg Tablet 1 Tab PO QID Amlodipine Besylate 10 Mg Tablet 10 Mg PO DAILY Carvedilol 25 Mg Tablet 25 Mg PO BIDWMEALS Multivitamins (Multivitamin) 1 Each Tablet 1 Tab PO DAILY Zoloft (Sertraline Hcl) 100 Mg Tablet 1 Tab PO DAILY Furosemide 40 Mg Tablet 1 Tab PO DAILY Vitals/I & O Vital Sign - Last 24 Hours 11/20/18 11/20/18 11/20/18 11/20/18 15:00 19:05 20:00 23:08 Temp 100.4 98.6 100.4 98.6 Pulse 60 59 60 Resp 16 19 17 B/P (MAP) 148/48 (81) 143/50 (81) 152/52 (85) Pulse Ox 93 95 93 O2 Delivery Room Air Room Air Room Air Room Air 11/21/18 11/21/18 11/21/18 11/21/18 03:42 07:31 08:00 11:00 Temp 98.1 98.2 98.9 98.1 98.2 98.9 Pulse 60 60 61 Resp 22 18 20 B/P (MAP) 155/51 (85) 164/72 (102) 128/41 (70) Pulse Ox 94 95 95 O2 Delivery Room Air Room Air Room Air Room Air O2 Flow Rate 2.0 Intake and Output 11/20/18 11/20/18 11/21/18 15:01 23:01 07:01 Intake Total 0 ml 0 ml 0 ml Balance 0 ml 0 ml 0 ml Nutrition Consultation Dietary Evaluation: Recommendations by RD: Increase Calorie Intake, Protein supplementation Comments: diet advancement per [employer], Renal, ADA/ supplements if unable to advance rec PPN for short term nutiriton Expected Outcomes/Goals: diet advancement/ tolerance of foods Malnutrition Findings: Body Fat Depletion (Non Severe: Mild Depletion Weight Status: Obese ARLENE MUÑOZ III DO Nov 21, 2018 12:37
[2018-11-21] MEDS: AMINO AC 3%/ELECTROLYTE/GLYCER 1,000 ML IV SCH (13:20)
[2018-11-21] MEDS: cefTRIAXone IV Push 1 GM VIAL. IVP SCH (15:25)
[2018-11-21 15:26] VITALS: BP 133/58
--- NOTE | 2018-11-21 15:50 | PDOC ---
PROGRESS NOTES Assessment Assessment IMPRESSION: Metabolic encephalopathy. Pneumonia. Renal failure. Hyperkalemia. NEETU on CKD. HTN. HLD. Wheel chair bound. Obesity. Pacemaker in placement. RECOMMENDATIONS/PLAN: Continue ASA daily. EEG. Lab: see orders. No MRI due to pacemaker. Treat medical diseases per floor team. OT/PT. PAST MEDICAL AND SURGICAL HISTORY: Please see H&P ALLERGY: Unknown MEDICATIONS: Refer to MAR REVIEW OF SYSTEMS: Constitutional: Obesity. Head: No traumatic brain or head injury. Skin: No edema, or rash. Ear: No infection. Eyes: No vision loss, or diplopia. Nose: No bleeding or purulent discharges. Hearing: Hearing loss. Neck: No injury. Breast: No history of cancer, masses, or discharges. Cardiac: Pacemaker Placement, HTN, HLD Pulmonary: No COPD. GI: No GI Ulcer, GI bleeding Urinary/genital: CKD. Endocrine: Obesity. Skeletomuscular: No muscular atrophy, deformity. Neurological: see HP. Psychiatric: Denies drug use/abuse. Otherwise, not [id number] review of systems. PHYSICAL EXAMINATION: General appearance in no acute distress. HEENT: Normocephalic and nontraumatic. Eyes, nose, ears, and throat are unremarkable. Neck is supple. No lymphadenopathy. No Crepitus. Cardiovascular: S1, S2, regular rate and rhythm. Pulmonary: Clear to auscultation bilaterally. Abdomen: Bowel sounds are positive. Abdomen is soft, nontender, and nondistended. Extremities: No rash, lesions, or edema. No restriction of range of motion NEUROLOGICAL EXAMINATION: Awake. Not oriented to time, place and person. PERRL. EOMI. CN: no focal findings. Muscle tone: within normal. Muscle strength: 4+ DTR: 1-2 Plantar reflex: Flexor response bilaterally Gait: not examined in bed. Sensory exam: no abnormal findings. No other cerebellar signs elicited. F-T-N test not performed due to not follow commands. Objective Objective Vital Signs Date Time Temp Pulse Resp B/P (MAP) Pulse Ox O2 Delivery O2 Flow Rate FiO2 11/21/18 15:26 97.9 60 20 133/58 (83) 94 Room Air 97.9 11/21/18 08:00 2.0 Intake and Output 11/21/18 07:01 Intake Total 0 ml Balance 0 ml Intake Oral 0 ml # Voids 6 # Bowel Movements 4 Vitals Signs Vitals VS - Last 72 Hours, by Label Date Time Temp Pulse Resp B/P (MAP) Pulse Ox O2 Delivery O2 Flow Rate FiO2 11/21/18 15:26 97.9 60 20 133/58 (83) 94 Room Air 97.9 11/21/18 11:00 98.9 61 20 128/41 (70) 95 Room Air 98.9 11/21/18 08:00 Room Air 2.0 11/21/18 07:31 98.2 60 18 164/72 (102) 95 Room Air 98.2 11/21/18 03:42 98.1 60 22 155/51 (85) 94 Room Air 98.1 11/20/18 23:08 98.6 60 17 152/52 (85) 93 Room Air 98.6 11/20/18 20:00 Room Air 11/20/18 19:05 59 19 143/50 (81) 95 Room Air 11/20/18 15:00 100.4 60 16 148/48 (81) 93 Room Air 100.4 11/20/18 11:00 98.6 59 16 154/50 (84) 98 Nasal Cannula 2.0 98.6 11/20/18 08:00 Room Air 11/20/18 07:00 98.1 59 16 101/56 (71) 93 Nasal Cannula 2.0 98.1 Laboratory Laboratory Laboratory Tests Test 11/20/18 19:08 11/21/18 03:10 11/21/18 05:41 11/21/18 09:56 Glucose (Fingerstick) 76 mg/dL (70-99) 62 mg/dL (70-99) 77 mg/dL (70-99) Sodium Level 141 mmol/L (136-145) Potassium Level 4.8 mmol/L (3.5-5.1) Chloride Level 108 mmol/L (98-107) Carbon Dioxide Level 20 mmol/L (21-32) Anion Gap 13 (6-14) Blood Urea Nitrogen 43 mg/dL (7-20) Creatinine 2.4 mg/dL (0.6-1.0) Estimated GFR (Cockcroft-Gault) 19.6 Glucose Level 68 mg/dL (70-99) Calcium Level 9.0 mg/dL (8.5-10.1) Triglycerides Level 93 mg/dL (0-150) Cholesterol Level 116 mg/dL (0-200) LDL Cholesterol, Calculated 70 mg/dL (0-100) VLDL Cholesterol, Calculated 19 mg/dL (0-40) Non-HDL Cholesterol Calculated 89 mg/dL (0-129) HDL Cholesterol 27 mg/dL (40-60) Cholesterol/HDL Ratio 4.3 Test 11/21/18 11:36 Glucose (Fingerstick) 86 mg/dL (70-99) Medication Medications Current Medications Amino Acids/ Glycerin/ Electrolytes 1,000 ml @ 80 mls/hr [id number] IV Last administered on 11/21/18at 13:20; Start 11/21/18 at 12:45 Comment Review of Relevant I have reviewed the following items adal (where applicable) has been applied. RADHA NEWTON MD Nov 21, 2018 15:50
--- NOTE | 2018-11-21 16:44 | CARD ---
MR#: [id number] Date of Study: 11/21/2018 Ordering Physician: DELMA GARCIA, Referring Physician: PACO CHAO Tech: Anna Thayer APPROVED REPORT EXAM: Two-dimensional and M-mode echocardiogram with Doppler and color Doppler. Other Information Quality : AverageHR: 63bpm INDICATION CVA/TIA Surgery/Intervention Pacemaker: 2D DIMENSIONS RVDd4.5 (2.9-3.5cm)Left Atrium(2D)4.5 (1.6-4.0cm) IVSd1.2 (0.7-1.1cm)Aortic Root(2D)3.4 (2.0-3.7cm) LVDd5.7 (3.9-5.9cm)LVOT Diameter2.1 (1.8-2.4cm) PWd1.2 (0.7-1.1cm)LVDs3.5 (2.5-4.0cm) FS (%) 38.2 %SV106.8 ml LVEF(%)67.7 (>50%) Aortic Valve AoV Peak Mo.109.8cm/sAoV VTI28.6cm AO Peak GR.4.8mmHgLVOT VTI 17.93cm AO Mean GR.3mmHg Mitral Valve MV E Vujjgffc10.8cm/sMV E Peak Gr.85mmHg MV DECEL [id number] A Eebmdwfu91.5cm/s E/A Ratio1.5 Tricuspid Valve TR P. Qymnaeht751hw/sRAP FYDICDUS8qxHg TR Peak Gr.47vvAfYWQO46cwLp Pulmonary Vein S1 Wsgydywr58.9cm/sS2 Qyaasmkv79.93cm/s D2 Xguevpxs47.9cm/s LEFT VENTRICLE The Left Ventricle is mildly dilated. There is mild concentric left ventricular hypertrophy. The left ventricular systolic function is low normal. The Ejection Fraction is 50%. There is normal LV segmen manfred wall motion. The left ventricular diastolic function and filling is normal for age. RIGHT VENTRICLE The right ventricle is moderately dilated. There is normal right ventricular wall thickness. Systolic function is mildly reduced. There is a pacemaker lead in the right ventricle. ATRIA The left atrium is mildly dilated. The right atrium size is normal. The interatrial septum is intact with no evidence for an atrial septal defect or patent foramen ovale as noted on 2-D or Doppler imagi ng. AORTIC VALVE The aortic valve is thickened but opens well. Doppler and Color Flow revealed trace aortic regurgitat ion. There is no significant aortic valvular stenosis. MITRAL VALVE The mitral valve is normal in structure and function. There is no evidence of mitral valve prolapse. There is no mitral valve stenosis. Doppler and Color-flow revealed trace mitral regurgitation. TRICUSPID VALVE The tricuspid valve is normal in structure and function. Doppler and Color Flow revealed mild to mode rate tricuspid regurgitation. There is no tricuspid valve stenosis. PULMONIC VALVE The pulmonic valve is not well visualized. Doppler and Color Flow revealed trace to mild pulmonic cosme vular regurgitation. GREAT VESSELS The aortic root is normal in size. The IVC is normal in size and collapses >50% with inspiration. PERICARDIAL EFFUSION There is moderate left pleural effusion. There is no evidence of significant pericardial effusion. Critical Notification Critical Value: No <Conclusion> The left ventricular systolic function is low normal. The Ejection Fraction is 50%. There is a pacemaker lead in the right atrium and right ventricle. Trace mitral regurgitation. Mild to moderate tricuspid regurgitation. There is no evidence of significant pericardial effusion. There is moderate left pleural effusion. Signed by : Paul Toro, Electronically Approved : 11/21/2018 16:42:23
--- NOTE | 2018-11-21 17:00 | NUR ---
SW following pt for anticipated dc needs. SW confirmed with Dianna pt is LTC resident at [facility] and plan of return upon dc. SW will continue to follow.
[2018-11-21 19:00] VITALS: BP 166/67
[2018-11-21] MEDS: FAMOTIDINE 20 MG/2 ML VIAL IVP SCH (21:16)
[2018-11-21 23:00] VITALS: BP 166/63
[2018-11-22] MEDS: AMINO AC 3%/ELECTROLYTE/GLYCER 1,000 ML IV SCH ×3 (00:18→23:59)
[2018-11-22 03:00] VITALS: BP 166/67
[2018-11-22] MEDS: HEPARIN for SUB-Q USE 5,000 UNIT/ML VIAL. SQ SCH ×3 (06:09→21:27)
[2018-11-22 07:00] VITALS: BP 169/59
[2018-11-22] MEDS: ASPIRIN 300 MG SUPP.RECT PR SCH (09:11)
--- NOTE | 2018-11-22 09:35 | NUR ---
Notified Dr. Hopkins, home medication list in chart and ready to be addressed.
--- NOTE | 2018-11-22 10:44 | NUR ---
Discussed HTN of 160's with Dr. Hopkins, reviewed home meds, patient has home b/p meds, reviewed list together, will restart now.
[2018-11-22] MEDS ORDERED: ACETAMINOPHEN 325 MG TABLET. PO PRN (10:45)
[2018-11-22] MEDS ORDERED: NITROGLYCERIN SUBLINGUAL 0.4 MG BOTTLE OF 25. SL PRN (10:45)
[2018-11-22] MEDS ORDERED: MAGNESIUM HYDROXIDE 2,400 MG/30 ML ORAL.SUSP. PO PRN (10:45)
[2018-11-22 11:15] VITALS: BP 149/72
[2018-11-22] MEDS: FUROSEMIDE 40 MG TABLET. PO SCH (12:23)
[2018-11-22] MEDS: MAGNESIUM OXIDE 400 MG TABLET PO SCH (12:23)
[2018-11-22] MEDS: glipiZIDE 5 MG TABLET PO SCH (12:23)
[2018-11-22] MEDS: MULTIVITAMIN with MINERAL TABLET. PO SCH (12:23)
[2018-11-22] MEDS: amLODIPine BESYLATE 10 MG TABLET PO SCH (12:24)
[2018-11-22] MEDS: CLOPIDOGREL BISULFATE 75 MG TABLET PO SCH (12:24)
[2018-11-22] MEDS: SERTRALINE 50 MG TABLET. PO SCH (12:24)
--- NOTE | 2018-11-22 12:38 | PDOC ---
PROGRESS NOTES Chief Complaint Chief Complaint AMS, right-sided weakness History of Present Illness History of Present Illness Patient seen and examined. Patient was awake and alert during exam. We discussed how she is a long-term resident at [facility]. Her echo yesterday was positive for moderate left pleural effusion, pacer leads in rigth atrium and ventricle, and trace mitral regurgitation. Vitals Vitals Vital Signs Date Time Temp Pulse Resp B/P (MAP) Pulse Ox O2 Delivery O2 Flow Rate FiO2 11/22/18 12:24 60 149/72 11/22/18 11:15 97.8 18 96 Room Air 97.8 11/21/18 08:00 2.0 Physical Exam General: Alert, Oriented X3, Cooperative, No acute distress, Other (not easilt arousable) Heart: Regular rate, Normal S1, Normal S2 Lungs: Clear Abdomen: Normal bowel sounds, Soft Extremities: No clubbing Skin: No breakdown Labs LABS Laboratory Tests Test 11/21/18 17:40 11/22/18 02:20 11/22/18 12:00 Glucose (Fingerstick) 111 mg/dL (70-99) 122 mg/dL (70-99) 135 mg/dL (70-99) Review of Systems Review of Systems Heart: denies chest pain Lung: denies soa Integument: denies rash Assessment and Plan Assessmemt and Plan Assessment: 1. AMS 2. Right sided weakness 3. HTN Plan: 1.Continues IV antibioitcs 2.Home meds 3. Labs 4. OT/P 5. Speech therapy 6. Awaiting palliative care input Comment Review of Relevant I have reviewed the following items adal (where applicable) has been applied. Labs Laboratory Tests Test 11/20/18 19:08 11/21/18 03:10 11/21/18 05:41 11/21/18 09:56 Glucose (Fingerstick) 76 mg/dL (70-99) 62 mg/dL (70-99) 77 mg/dL (70-99) Sodium Level 141 mmol/L (136-145) Potassium Level 4.8 mmol/L (3.5-5.1) Chloride Level 108 mmol/L (98-107) Carbon Dioxide Level 20 mmol/L (21-32) Anion Gap 13 (6-14) Blood Urea Nitrogen 43 mg/dL (7-20) Creatinine 2.4 mg/dL (0.6-1.0) Estimated GFR (Cockcroft-Gault) 19.6 Glucose Level 68 mg/dL (70-99) Calcium Level 9.0 mg/dL (8.5-10.1) Triglycerides Level 93 mg/dL (0-150) Cholesterol Level 116 mg/dL (0-200) LDL Cholesterol, Calculated 70 mg/dL (0-100) VLDL Cholesterol, Calculated 19 mg/dL (0-40) Non-HDL Cholesterol Calculated 89 mg/dL (0-129) HDL Cholesterol 27 mg/dL (40-60) Cholesterol/HDL Ratio 4.3 Vitamin B12 Level 1246 pg/mL (232-1245) Thyroid Stimulating Hormone (TSH) 4.706 uIU/mL (0.358-3.74) Test 11/21/18 11:36 11/21/18 17:40 11/22/18 02:20 11/22/18 12:00 Glucose (Fingerstick) 86 mg/dL (70-99) 111 mg/dL (70-99) 122 mg/dL (70-99) 135 mg/dL (70-99) Laboratory Tests Test 11/21/18 17:40 11/22/18 02:20 11/22/18 12:00 Glucose (Fingerstick) 111 mg/dL (70-99) 122 mg/dL (70-99) 135 mg/dL (70-99) Medications Current Medications Sodium Chloride 1,000 ml @ 100 mls/hr Q10H IV Last administered on 11/19/18at 09:54; Start 11/19/18 at 08:40; Stop 11/19/18 at 18:39; Status DC Naloxone HCl (Narcan) 0.8 mg 1X ONCE IV Last administered on 11/19/18 10:02; Start 11/19/18 at 09:15; Stop 11/19/18 at 09:16; Status DC Insulin Human Regular (HumuLIN R VIAL) 10 unit 1X ONCE IV Last administered on 11/19/18at 10:01; Start 11/19/18 at 09:45; Stop 11/19/18 at 09:46; Status DC Dextrose (Dextrose 50%-Water Syringe) 25 gm 1X ONCE IV Last administered on at 10:02; Start 11/19/18 at 09:45; Stop 11/19/18 at 09:46; Status DC Sodium Bicarbonate 50 meq/Sodium Chloride 1,050 ml @ 125 mls/hr 1X ONCE IV Last administered on 11/19/18at 09:52; Start 11/19/18 at 10:00; Stop 11/19/18 at 18:23; Status DC Aspirin (Xander Aspirin) 325 mg 1X ONCE PO ; Start 11/19/18 at 10:15; Stop 11/19 at 10:16; Status DC Famotidine (Pepcid Vial) 20 mg QHS IVP Last administered on 11/21/18at 21:16; Start 11/19/18 at 21:00; Stop 11/22/18 at 10:53; Status DC Heparin Sodium (Porcine) (Heparin Sodium) 5,000 unit Q8HRS SQ Last administered on 11/22/18at 06:09; Start 11/19/18 at 14:00 Acetaminophen (Tylenol) 500 mg PRN Q6HRS PRN PO HEADACHE / TEMP; Start at 11:00; Stop 11/22/18 at 10:47; Status DC Ondansetron HCl (Zofran) 4 mg PRN Q6HRS PRN IV NAUSEA/VOMITING; Start 11/19/18 at 11:00 Morphine Sulfate (Morphine Sulfate) 1 mg PRN Q2HR PRN IV PAIN; Start 11/19/18 at 11:00 Aspirin (Aspirin) 300 mg DAILY NC Last administered on 11/22/18at 09:11; Start 11/20/18 at 09:00; Stop 11/22/18 at 10:47; Status DC Dextrose (Dextrose 50%-Water Syringe) 12.5 gm PRN Q15MIN PRN IV SEE COMMENTS Last administered on 11/21/18at 05:51; Start 11/20/18 at 05:00 Sodium Polystyrene Sulfonate (Kayexalate) 30 gm 1X ONCE NC Last administered on 11/20/18at 15:29; Start 11/20/18 at 12:00; Stop 11/20/18 at 12:01; Status DC Ceftriaxone Sodium (Rocephin) 1 gm Q24H IVP Last administered on 11/21/18at 15: 25; Start 11/20/18 at 15:00 Amino Acids/ Glycerin/ Electrolytes 1,000 ml @ 80 mls/hr [id number] IV Last administered on 11/22/18 00:18; Start 11/21/18 at 12:45 Acetaminophen (Tylenol) 650 mg PRN Q4HRS PRN PO PAIN Last administered on 12:23; Start 11/22/18 at 10:45 Amlodipine Besylate (Norvasc) 10 mg DAILY PO Last administered on 11/22/18at 12: 24; Start 11/22/18 at 12:00 Aspirin (Ecotrin) 81 mg DAILY PO ; Start 11/23/18 at 09:00 Clopidogrel Bisulfate (Plavix) 75 mg DAILY PO Last administered on 11/22/18 12 :24; Start 11/22/18 at 12:00 Furosemide (Lasix) 40 mg DAILY PO Last administered on 11/22/18 12:23; Start 11/22/18 at 12:00 Glipizide (Glucotrol) 5 mg DAILY PO Last administered on 11/22/18at 12:23; Start 11/22/18 at 12:00 Magnesium Hydroxide (Milk Of Magnesia) 2,400 mg PRN DAILY PRN PO CONSTIPATION; Start 11/22/18 at 10:45 Nitroglycerin (Nitrostat) 0.4 mg PRN Q5MIN PRN SL CHEST PAIN; Start 11/22/18 at 10:45 Simvastatin (Zocor) 10 mg QHS PO ; Start 11/22/18 at 21:00 Carvedilol (Coreg) 25 mg BIDWMEALS PO ; Start 11/22/18 at 17:00 Hydralazine HCl (Apresoline) 10 mg QID PO ; Start 11/22/18 at 14:00 Magnesium Oxide (Magnesium Oxide) 400 mg DAILY PO Last administered on 12:23; Start 11/22/18 at 12:00 Multivitamins (Thera M Plus) 1 tab DAILY PO Last administered on 11/22/18at 12: 23; Start 11/22/18 at 12:00 Famotidine (Pepcid) 20 mg QHS PO ; Start 11/22/18 at 21:00 Sertraline HCl (Zoloft) 100 mg DAILY PO Last administered on 11/22/18at 12:24; Start 11/22/18 at 12:00 Active Scripts Active Reported Milk Of Magnesia (Magnesium Hydroxide) 400 Mg/5 Ml Oral.susp 30 Ml PO PRN DAILY PRN NITROGLYCERIN SubLingual (Nitroglycerin) 0.4 Mg Tab.subl 0.4 Mg SL PRN Q5MIN PRN Simvastatin 10 Mg Tablet 1 Tab PO QHS Clopidogrel (Clopidogrel Bisulfate) 75 Mg Tablet 1 Tab PO DAILY Aspirin Ec (Aspirin) 81 Mg Tablet.dr 1 Tab PO DAILY Tylenol (Acetaminophen) 325 Mg Tablet 2 Tab PO PRN Q4HRS PRN Glipizide 5 Mg Tablet 1 Tab PO DAILY Magox 400 (Magnesium Oxide) 400 Mg Tablet 400 Mg PO DAILY Ranitidine Hcl 150 Mg Tablet 1 Tab PO DAILY Hydralazine Hcl 10 Mg Tablet 1 Tab PO QID Amlodipine Besylate 10 Mg Tablet 10 Mg PO DAILY Carvedilol 25 Mg Tablet 25 Mg PO BIDWMEALS Multivitamins (Multivitamin) 1 Each Tablet 1 Tab PO DAILY Zoloft (Sertraline Hcl) 100 Mg Tablet 1 Tab PO DAILY Furosemide 40 Mg Tablet 1 Tab PO DAILY Vitals/I & O Vital Sign - Last 24 Hours 11/21/18 11/21/18 11/21/18 11/21/18 15:26 19:00 20:00 23:00 Temp 97.9 99.1 99.0 97.9 99.1 99.0 Pulse 60 60 60 Resp 20 20 20 B/P (MAP) 133/58 (83) 166/67 (100) 166/63 (97) Pulse Ox 94 96 97 O2 Delivery Room Air Room Air Room Air Room Air 11/22/18 11/22/18 11/22/18 11/22/18 03:00 07:00 08:00 11:15 Temp 98.0 98.1 97.8 98.0 98.1 97.8 Pulse 60 59 60 Resp 18 18 18 B/P (MAP) 166/67 (100) 169/59 (95) 149/72 (97) Pulse Ox 95 98 96 O2 Delivery Room Air Room Air Room Air Room Air 11/22/18 12:24 Pulse 60 B/P (MAP) 149/72 Intake and Output 11/21/18 11/21/18 11/22/18 15:01 23:01 07:01 Intake Total 120 ml 100 ml 0 ml Balance 120 ml 100 ml 0 ml Nutrition Consultation Dietary Evaluation: Recommendations by RD: Increase Calorie Intake, Protein supplementation Comments: diet advancement per [employer], Renal, ADA/ supplements if unable to advance rec PPN for short term nutiriton Expected Outcomes/Goals: diet advancement/ tolerance of foods Malnutrition Findings: Body Fat Depletion (Non Severe: Mild Depletion Weight Status: Obese ARLENE MUÑOZ III DO Nov 22, 2018 12:38
--- NOTE | 2018-11-22 13:51 | PDOC ---
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 Labs from yesterday reviewed- stable e-lytes and acid base Renal Sono and UA Unremarkable Right sided weakness- Neurology following Anemia- Hgb stable On Aranesp HTN- continue antihypertensives DM II- as per primary Hyperkalemia - K Normal Palliative consulted COMMENT/RELEVANT DATA Meds Current Medications Medications (Trade) Dose Ordered Sig/Antonio Start Time Stop Time Status Last Admin Dose Admin Acetaminophen (Tylenol) 650 mg PRN Q4HRS PRN 11/22/18 10:45 11/22/18 12:23 650 MG Amino Acids/ Glycerin/ Electrolytes 1,000 ml @ 80 mls/hr [id number] 11/21/18 12:45 11/22/18 00:18 80 MLS/HR Amlodipine Besylate (Norvasc) 10 mg DAILY 11/22/18 12:00 11/22/18 12:24 10 MG Aspirin (Aspirin) 300 mg DAILY 11/20/18 09:00 11/22/18 10:47 DC 11/22/18 09:11 300 MG Aspirin (Xander Aspirin) 325 mg 1X ONCE 11/19/18 10:15 11/19/18 10:16 DC Aspirin (Ecotrin) 81 mg DAILY 11/23/18 09:00 Carvedilol (Coreg) 25 mg BIDWMEALS 11/22/18 17:00 Ceftriaxone Sodium (Rocephin) 1 gm Q24H 11/20/18 15:00 11/21/18 15:25 1 GM Clopidogrel Bisulfate (Plavix) 75 mg DAILY 11/22/18 12:00 11/22/18 12:24 75 MG Dextrose (Dextrose 50%-Water Syringe) 12.5 gm PRN Q15MIN PRN 11/20/18 05:00 11/21/18 05:51 12.5 GM Famotidine (Pepcid Vial) 20 mg QHS 11/19/18 21:00 11/22/18 10:53 DC 11/21/18 21:16 20 MG Famotidine (Pepcid) 20 mg QHS 11/22/18 21:00 Furosemide (Lasix) 40 mg DAILY 11/22/18 12:00 11/22/18 12:23 40 MG Glipizide (Glucotrol) 5 mg DAILY 11/22/18 12:00 11/22/18 12:23 5 MG Heparin Sodium (Porcine) (Heparin Sodium) 5,000 unit Q8HRS 11/19/18 14:00 11/22/18 06:09 5,000 UNIT Hydralazine HCl (Apresoline) 10 mg QID 11/22/18 14:00 Insulin Human Regular (HumuLIN R VIAL) 10 unit 1X ONCE 11/19/18 09:45 11/19/18 09:46 DC 11/19/18 10:01 10 UNIT Magnesium Hydroxide (Milk Of Magnesia) 2,400 mg PRN DAILY PRN 11/22/18 10:45 Magnesium Oxide (Magnesium Oxide) 400 mg DAILY 11/22/18 12:00 11/22/18 12:23 400 MG Morphine Sulfate (Morphine Sulfate) 1 mg PRN Q2HR PRN 11/19/18 11:00 Multivitamins (Thera M Plus) 1 tab DAILY 11/22/18 12:00 11/22/18 12:23 1 TAB Naloxone HCl (Narcan) 0.8 mg 1X ONCE 11/19/18 09:15 11/19/18 09:16 DC 11/19/18 10:02 0.8 MG Nitroglycerin (Nitrostat) 0.4 mg PRN Q5MIN PRN 11/22/18 10:45 Ondansetron HCl (Zofran) 4 mg PRN Q6HRS PRN 11/19/18 11:00 Sertraline HCl (Zoloft) 100 mg DAILY 11/22/18 12:00 11/22/18 12:24 100 MG Simvastatin (Zocor) 10 mg QHS 11/22/18 21:00 Sodium Bicarbonate 50 meq/Sodium Chloride 1,050 ml @ 125 mls/hr 1X ONCE 11/19/18 10:00 11/19/18 18:23 DC 11/19/18 09:52 125 MLS/HR Sodium Polystyrene Sulfonate (Kayexalate) 30 gm 1X ONCE 11/20/18 12:00 11/20/18 12:01 DC 11/20/18 15:29 30 GM Sodium Chloride 1,000 ml @ 100 mls/hr Q10H 11/19/18 08:40 11/19/18 18:39 DC 11/19/18 09:54 100 MLS/HR Lab Laboratory Tests Test 11/21/18 17:40 11/22/18 02:20 11/22/18 12:00 Glucose (Fingerstick) 111 mg/dL (70-99) 122 mg/dL (70-99) 135 mg/dL (70-99) Results All relevant outside records, renal labs, imaging studies, telemetry/EKG's were reviewed. EDDIE OCONNELL MD Nov 22, 2018 13:51
[2018-11-22] MEDS ORDERED: hydrALAZINE 10 MG TABLET PO SCH (14:00)
[2018-11-22 15:26] VITALS: BP 164/77
--- NOTE | 2018-11-22 16:14 | PDOC ---
PROGRESS NOTES Assessment Assessment Metabolic encephalopathy. Fever, 100.4 degree on 11/20/18. Pneumonia. Renal failure. Hyperkalemia. NEETU on CKD. HTN. HLD. Wheel chair bound. Obesity. Pacemaker in placement. RECOMMENDATIONS/PLAN: Continue ASA daily. EEG ordered. Lab: CBC. T3, T4. No MRI due to pacemaker. Treat medical diseases per floor team. OT/PT. HCT: No acute findings. PAST MEDICAL AND SURGICAL HISTORY: Please see H&P ALLERGY: Unknown MEDICATIONS: Refer to MAR REVIEW OF SYSTEMS: Constitutional: Obesity. Head: No traumatic brain or head injury. Skin: No edema, or rash. Ear: No infection. Eyes: No vision loss, or diplopia. Nose: No bleeding or purulent discharges. Hearing: Hearing loss. Neck: No injury. Breast: No history of cancer, masses, or discharges. Cardiac: Pacemaker Placement, HTN, HLD Pulmonary: No COPD. GI: No GI Ulcer, GI bleeding Urinary/genital: CKD. Endocrine: Obesity. Skeletomuscular: No muscular atrophy, deformity. Neurological: see HP. Psychiatric: Denies drug use/abuse. Otherwise, not [id number] review of systems. PHYSICAL EXAMINATION: General appearance in no acute distress. HEENT: Normocephalic and nontraumatic. Eyes, nose, ears, and throat are unremarkable. Neck is supple. No lymphadenopathy. No Crepitus. Cardiovascular: S1, S2, regular rate and rhythm. Pulmonary: Clear to auscultation bilaterally. Abdomen: Bowel sounds are positive. Abdomen is soft, nontender, and nondistended. Extremities: No rash, lesions, or edema. No restriction of range of motion NEUROLOGICAL EXAMINATION: Awake. Not able to communicate. Not oriented to time, place and person. PERRL. EOMI. CN: no focal findings. Muscle tone: within normal. Muscle strength: 4+ DTR: 1-2 Plantar reflex: Flexor response bilaterally Gait: not examined in bed. Sensory exam: no abnormal findings. No other cerebellar signs elicited. F-T-N test not performed due to not follow commands. Objective Objective Vital Signs Date Time Temp Pulse Resp B/P (MAP) Pulse Ox O2 Delivery O2 Flow Rate FiO2 11/22/18 15:26 99.1 60 20 164/77 (106) 93 Room Air 99.1 11/21/18 08:00 2.0 Intake and Output 11/22/18 07:01 Intake Total 220 ml Balance 220 ml Intake Oral 220 ml # Voids 4 Vitals Signs Vitals VS - Last 72 Hours, by Label Date Time Temp Pulse Resp B/P (MAP) Pulse Ox O2 Delivery O2 Flow Rate FiO2 11/22/18 15:26 99.1 60 20 164/77 (106) 93 Room Air 99.1 11/22/18 12:24 60 149/72 11/22/18 11:15 97.8 60 18 149/72 (97) 96 Room Air 97.8 11/22/18 08:00 Room Air 11/22/18 07:00 98.1 59 18 169/59 (95) 98 Room Air 98.1 11/22/18 03:00 98.0 60 18 166/67 (100) 95 Room Air 98.0 11/21/18 23:00 99.0 60 20 166/63 (97) 97 Room Air 99.0 11/21/18 20:00 Room Air 11/21/18 19:00 99.1 60 20 166/67 (100) 96 Room Air 99.1 11/21/18 15:26 97.9 60 20 133/58 (83) 94 Room Air 97.9 11/21/18 11:00 98.9 61 20 128/41 (70) 95 Room Air 98.9 11/21/18 08:00 Room Air 2.0 11/21/18 07:31 98.2 60 18 164/72 (102) 95 Room Air 98.2 Laboratory Laboratory Laboratory Tests Test 11/21/18 17:40 11/22/18 02:20 11/22/18 12:00 Glucose (Fingerstick) 111 mg/dL (70-99) 122 mg/dL (70-99) 135 mg/dL (70-99) Medication Medications Current Medications Acetaminophen (Tylenol) 650 mg PRN Q4HRS PRN PO PAIN Last administered on at 12:23; Start 11/22/18 at 10:45 Amlodipine Besylate (Norvasc) 10 mg DAILY PO Last administered on 11/22/18at 12: 24; Start 11/22/18 at 12:00 Aspirin (Ecotrin) 81 mg DAILY PO ; Start 11/23/18 at 09:00 Carvedilol (Coreg) 25 mg BIDWMEALS PO ; Start 11/22/18 at 17:00 Clopidogrel Bisulfate (Plavix) 75 mg DAILY PO Last administered on 11/22/18at 12 :24; Start 11/22/18 at 12:00 Famotidine (Pepcid) 20 mg QHS PO ; Start 11/22/18 at 21:00 Furosemide (Lasix) 40 mg DAILY PO Last administered on 11/22/18at 12:23; Start 11/22/18 at 12:00 Glipizide (Glucotrol) 5 mg DAILY PO Last administered on 11/22/18at 12:23; Start 11/22/18 at 12:00 Hydralazine HCl (Apresoline) 10 mg QID PO ; Start 11/22/18 at 14:00 Magnesium Hydroxide (Milk Of Magnesia) 2,400 mg PRN DAILY PRN PO CONSTIPATION; Start 11/22/18 at 10:45 Magnesium Oxide (Magnesium Oxide) 400 mg DAILY PO Last administered on at 12:23; Start 11/22/18 at 12:00 Multivitamins (Thera M Plus) 1 tab DAILY PO Last administered on 11/22/18at 12: 23; Start 11/22/18 at 12:00 Nitroglycerin (Nitrostat) 0.4 mg PRN Q5MIN PRN SL CHEST PAIN; Start 11/22/18 at 10:45 Sertraline HCl (Zoloft) 100 mg DAILY PO Last administered on 11/22/18at 12:24; Start 11/22/18 at 12:00 Simvastatin (Zocor) 10 mg QHS PO ; Start 11/22/18 at 21:00 Comment Review of Relevant I have reviewed the following items adla (where applicable) has been applied. RADHA NEWTON MD Nov 22, 2018 16:14
--- NOTE | 2018-11-22 16:35 | NUR ---
Patient refusing to take crushed pills in pudding, is spitting them out and trying to hit staff with spoons. Dr. Hopkins notified to see if ok to switch hydralazine from PO to IV.
[2018-11-22] MEDS: CARVEDILOL 12.5 MG TABLET. PO SCH (17:00)
[2018-11-22] MEDS ORDERED: hydrALAZINE 20 MG/ML VIAL. IVP SCH (17:00)
[2018-11-22] MEDS ORDERED: hydrALAZINE 20 MG/ML VIAL. IVP PRN (17:30)
[2018-11-22] MEDS: cefTRIAXone IV Push 1 GM VIAL. IVP SCH (17:37)
[2018-11-22 18:38] LABS: BASO # 0.1 x10^3/uL (0.0-0.2); BASO % 1 % (0-3); EOS # 0.3 x10^3/uL (0.0-0.7); EOS % 5 % (0-3); HEMATOCRIT 28.3 % (36.0-47.0); HEMOGLOBIN 9.3 g/dL (12.0-15.5); LYMPH % 16 % (24-48); MEAN CORPUSCULAR HEMOGLOBIN 29 pg (25-35); MEAN CORPUSCULAR HGB CONC 33 g/dL (31-37); MEAN CORPUSCULAR VOLUME 87 fL (79-100); MONO # 0.6 x10^3/uL (0.0-1.1); MONO % 10 % (0-9); NEUT # 4.1 x10^3uL (1.8-7.7); NEUT % 68 % (31-73); PLATELET COUNT 171 x10^3/uL (140-400); RED BLOOD COUNT 3.24 x10^6/uL (3.50-5.40); RED CELL DISTRIBUTION WIDTH 17.4 % (11.5-14.5)
[2018-11-22 19:00] VITALS: BP 161/76
[2018-11-22] MEDS ORDERED: SIMVASTATIN 10 MG TABLET PO SCH (21:00)
[2018-11-22] MEDS ORDERED: FAMOTIDINE 20 MG TABLET. PO SCH (21:00)
[2018-11-22 23:00] VITALS: BP 154/79
[2018-11-23 03:00] VITALS: BP 163/70
[2018-11-23] MEDS: HEPARIN for SUB-Q USE 5,000 UNIT/ML VIAL. SQ SCH ×2 (06:15→14:13)
[2018-11-23 06:55] VITALS: BP 172/79
[2018-11-23 07:38] LABS: BASO % 1 % (0-3); EOS # 0.4 x10^3/uL (0.0-0.7); EOS % 6 % (0-3); HEMATOCRIT 30.3 % (36.0-47.0); HEMOGLOBIN 9.8 g/dL (12.0-15.5); LYMPH # 1.2 x10^3/uL (1.0-4.8); LYMPH % 18 % (24-48); MEAN CORPUSCULAR HEMOGLOBIN 28 pg (25-35); MEAN CORPUSCULAR HGB CONC 32 g/dL (31-37); MEAN CORPUSCULAR VOLUME 88 fL (79-100); MONO # 0.7 x10^3/uL (0.0-1.1); MONO % 10 % (0-9); NEUT # 4.4 x10^3uL (1.8-7.7); NEUT % 66 % (31-73); PLATELET COUNT 189 x10^3/uL (140-400); RED BLOOD COUNT 3.46 x10^6/uL (3.50-5.40); RED CELL DISTRIBUTION WIDTH 17.3 % (11.5-14.5); WHITE BLOOD COUNT 6.6 x10^3/uL (4.0-11.0)
[2018-11-23 07:39] LABS: CALCIUM 9.2 mg/dL (8.5-10.1); CREATININE 2.2 mg/dL (0.6-1.0); GFR 21.7; POTASSIUM 5.6 mmol/L (3.5-5.1)
[2018-11-23] MEDS: MAGNESIUM OXIDE 400 MG TABLET PO SCH (08:38)
[2018-11-23] MEDS: SERTRALINE 50 MG TABLET. PO SCH (08:38)
[2018-11-23] MEDS: glipiZIDE 5 MG TABLET PO SCH (08:38)
[2018-11-23] MEDS: MULTIVITAMIN with MINERAL TABLET. PO SCH (08:38)
[2018-11-23] MEDS: FUROSEMIDE 40 MG TABLET. PO SCH (08:39)
[2018-11-23] MEDS: CLOPIDOGREL BISULFATE 75 MG TABLET PO SCH (08:39)
[2018-11-23] MEDS: CARVEDILOL 12.5 MG TABLET. PO SCH (08:41)
[2018-11-23] MEDS: amLODIPine BESYLATE 10 MG TABLET PO SCH (08:44)
[2018-11-23] MEDS ORDERED: ASPIRIN CHEWABLE 81 MG TABLET. PO SCH (09:00)
[2018-11-23] MEDS ORDERED: ASPIRIN ENTERIC COATED 81 MG TABLET.DR. PO SCH (09:00)
[2018-11-23 09:16] LABS: FREE T4 0.9 ng/dL (0.76-1.46)
[2018-11-23 10:37] VITALS: BP 152/68
[2018-11-23] MEDS: AMINO AC 3%/ELECTROLYTE/GLYCER 1,000 ML IV SCH (12:31)
--- NOTE | 2018-11-23 12:54 | PDOC ---
PROGRESS NOTES Chief Complaint Chief Complaint AMS, right-sided weakness History of Present Illness History of Present Illness Patient seen and examined this morning. Patient was sleepy and not alert during exam. Her echo two days ago was positive for moderate left pleural effusion, pacer leads in rigth atrium and ventricle, and trace mitral regurgitation. Neuro has ordered an EEG to be completed still. Vitals Vitals Vital Signs Date Time Temp Pulse Resp B/P (MAP) Pulse Ox O2 Delivery O2 Flow Rate FiO2 11/23/18 10:37 97.7 58 18 152/68 (96) 94 Room Air 97.7 Physical Exam General: No acute distress, Other (not easilt arousable) Heart: Regular rate, Normal S1, Normal S2 Lungs: Clear Abdomen: Normal bowel sounds, Soft Extremities: No clubbing Skin: No breakdown Labs LABS Laboratory Tests Test 11/22/18 17:39 11/22/18 18:25 11/22/18 23:55 11/23/18 06:00 Glucose (Fingerstick) 101 mg/dL (70-99) 99 mg/dL (70-99) White Blood Count 6.0 x10^3/uL (4.0-11.0) 6.6 x10^3/uL (4.0-11.0) Red Blood Count 3.24 x10^6/uL (3.50-5.40) 3.46 x10^6/uL (3.50-5.40) Hemoglobin 9.3 g/dL (12.0-15.5) 9.8 g/dL (12.0-15.5) Hematocrit 28.3 % (36.0-47.0) 30.3 % (36.0-47.0) Mean Corpuscular Volume 87 fL (79-100) 88 fL (79-100) Mean Corpuscular Hemoglobin 29 pg (25-35) 28 pg (25-35) Mean Corpuscular Hemoglobin Concent 33 g/dL (31-37) 32 g/dL (31-37) Red Cell Distribution Width 17.4 % (11.5-14.5) 17.3 % (11.5-14.5) Platelet Count 171 x10^3/uL (140-400) 189 x10^3/uL (140-400) Neutrophils (%) (Auto) 68 % (31-73) 66 % (31-73) Lymphocytes (%) (Auto) 16 % (24-48) 18 % (24-48) Monocytes (%) (Auto) 10 % (0-9) 10 % (0-9) Eosinophils (%) (Auto) 5 % (0-3) 6 % (0-3) Basophils (%) (Auto) 1 % (0-3) 1 % (0-3) Neutrophils # (Auto) 4.1 x10^3uL (1.8-7.7) 4.4 x10^3uL (1.8-7.7) Lymphocytes # (Auto) 1.0 x10^3/uL (1.0-4.8) 1.2 x10^3/uL (1.0-4.8) Monocytes # (Auto) 0.6 x10^3/uL (0.0-1.1) 0.7 x10^3/uL (0.0-1.1) Eosinophils # (Auto) 0.3 x10^3/uL (0.0-0.7) 0.4 x10^3/uL (0.0-0.7) Basophils # (Auto) 0.1 x10^3/uL (0.0-0.2) 0.0 x10^3/uL (0.0-0.2) Free Thyroxine 0.90 ng/dL (0.76-1.46) Free Triiodothyronine (T3) pg/mL 1.61 pg/mL (2.18-3.98) Sodium Level 140 mmol/L (136-145) Potassium Level 5.6 mmol/L (3.5-5.1) Chloride Level 107 mmol/L (98-107) Carbon Dioxide Level 22 mmol/L (21-32) Anion Gap 11 (6-14) Blood Urea Nitrogen 44 mg/dL (7-20) Creatinine 2.2 mg/dL (0.6-1.0) Estimated GFR (Cockcroft-Gault) 21.7 Glucose Level 104 mg/dL (70-99) Calcium Level 9.2 mg/dL (8.5-10.1) Test 11/23/18 07:14 11/23/18 12:11 Glucose (Fingerstick) 109 mg/dL (70-99) 112 mg/dL (70-99) Review of Systems Review of Systems Heart: denies chest pain Lung: denies soa Integument: denies rash Assessment and Plan Assessmemt and Plan Assessment: 1. Normocytic anemia 2. NEETU 3. HTN 4. DM2 5. CKD Plan: 1. Labs 2. PT/OT 3. Home meds 4. [facility] Comment Review of Relevant I have reviewed the following items adal (where applicable) has been applied. Labs Laboratory Tests Test 11/21/18 17:40 11/22/18 02:20 11/22/18 12:00 11/22/18 17:39 Glucose (Fingerstick) 111 mg/dL (70-99) 122 mg/dL (70-99) 135 mg/dL (70-99) 101 mg/dL (70-99) Test 11/22/18 18:25 11/22/18 23:55 11/23/18 06:00 11/23/18 07:14 White Blood Count 6.0 x10^3/uL (4.0-11.0) 6.6 x10^3/uL (4.0-11.0) Red Blood Count 3.24 x10^6/uL (3.50-5.40) 3.46 x10^6/uL (3.50-5.40) Hemoglobin 9.3 g/dL (12.0-15.5) 9.8 g/dL (12.0-15.5) Hematocrit 28.3 % (36.0-47.0) 30.3 % (36.0-47.0) Mean Corpuscular Volume 87 fL (79-100) 88 fL (79-100) Mean Corpuscular Hemoglobin 29 pg (25-35) 28 pg (25-35) Mean Corpuscular Hemoglobin Concent 33 g/dL (31-37) 32 g/dL (31-37) Red Cell Distribution Width 17.4 % (11.5-14.5) 17.3 % (11.5-14.5) Platelet Count 171 x10^3/uL (140-400) 189 x10^3/uL (140-400) Neutrophils (%) (Auto) 68 % (31-73) 66 % (31-73) Lymphocytes (%) (Auto) 16 % (24-48) 18 % (24-48) Monocytes (%) (Auto) 10 % (0-9) 10 % (0-9) Eosinophils (%) (Auto) 5 % (0-3) 6 % (0-3) Basophils (%) (Auto) 1 % (0-3) 1 % (0-3) Neutrophils # (Auto) 4.1 x10^3uL (1.8-7.7) 4.4 x10^3uL (1.8-7.7) Lymphocytes # (Auto) 1.0 x10^3/uL (1.0-4.8) 1.2 x10^3/uL (1.0-4.8) Monocytes # (Auto) 0.6 x10^3/uL (0.0-1.1) 0.7 x10^3/uL (0.0-1.1) Eosinophils # (Auto) 0.3 x10^3/uL (0.0-0.7) 0.4 x10^3/uL (0.0-0.7) Basophils # (Auto) 0.1 x10^3/uL (0.0-0.2) 0.0 x10^3/uL (0.0-0.2) Free Thyroxine 0.90 ng/dL (0.76-1.46) Free Triiodothyronine (T3) pg/mL 1.61 pg/mL (2.18-3.98) Glucose (Fingerstick) 99 mg/dL (70-99) 109 mg/dL (70-99) Sodium Level 140 mmol/L (136-145) Potassium Level 5.6 mmol/L (3.5-5.1) Chloride Level 107 mmol/L (98-107) Carbon Dioxide Level 22 mmol/L (21-32) Anion Gap 11 (6-14) Blood Urea Nitrogen 44 mg/dL (7-20) Creatinine 2.2 mg/dL (0.6-1.0) Estimated GFR (Cockcroft-Gault) 21.7 Glucose Level 104 mg/dL (70-99) Calcium Level 9.2 mg/dL (8.5-10.1) Test 11/23/18 12:11 Glucose (Fingerstick) 112 mg/dL (70-99) Laboratory Tests Test 1/29/19 17:39 11/22/18 18:25 11/22/18 23:55 11/23/18 06:00 Glucose (Fingerstick) 101 mg/dL (70-99) 99 mg/dL (70-99) White Blood Count 6.0 x10^3/uL (4.0-11.0) 6.6 x10^3/uL (4.0-11.0) Red Blood Count 3.24 x10^6/uL (3.50-5.40) 3.46 x10^6/uL (3.50-5.40) Hemoglobin 9.3 g/dL (12.0-15.5) 9.8 g/dL (12.0-15.5) Hematocrit 28.3 % (36.0-47.0) 30.3 % (36.0-47.0) Mean Corpuscular Volume 87 fL (79-100) 88 fL (79-100) Mean Corpuscular Hemoglobin 29 pg (25-35) 28 pg (25-35) Mean Corpuscular Hemoglobin Concent 33 g/dL (31-37) 32 g/dL (31-37) Red Cell Distribution Width 17.4 % (11.5-14.5) 17.3 % (11.5-14.5) Platelet Count 171 x10^3/uL (140-400) 189 x10^3/uL (140-400) Neutrophils (%) (Auto) 68 % (31-73) 66 % (31-73) Lymphocytes (%) (Auto) 16 % (24-48) 18 % (24-48) Monocytes (%) (Auto) 10 % (0-9) 10 % (0-9) Eosinophils (%) (Auto) 5 % (0-3) 6 % (0-3) Basophils (%) (Auto) 1 % (0-3) 1 % (0-3) Neutrophils # (Auto) 4.1 x10^3uL (1.8-7.7) 4.4 x10^3uL (1.8-7.7) Lymphocytes # (Auto) 1.0 x10^3/uL (1.0-4.8) 1.2 x10^3/uL (1.0-4.8) Monocytes # (Auto) 0.6 x10^3/uL (0.0-1.1) 0.7 x10^3/uL (0.0-1.1) Eosinophils # (Auto) 0.3 x10^3/uL (0.0-0.7) 0.4 x10^3/uL (0.0-0.7) Basophils # (Auto) 0.1 x10^3/uL (0.0-0.2) 0.0 x10^3/uL (0.0-0.2) Free Thyroxine 0.90 ng/dL (0.76-1.46) Free Triiodothyronine (T3) pg/mL 1.61 pg/mL (2.18-3.98) Sodium Level 140 mmol/L (136-145) Potassium Level 5.6 mmol/L (3.5-5.1) Chloride Level 107 mmol/L (98-107) Carbon Dioxide Level 22 mmol/L (21-32) Anion Gap 11 (6-14) Blood Urea Nitrogen 44 mg/dL (7-20) Creatinine 2.2 mg/dL (0.6-1.0) Estimated GFR (Cockcroft-Gault) 21.7 Glucose Level 104 mg/dL (70-99) Calcium Level 9.2 mg/dL (8.5-10.1) Test 11/23/18 07:14 11/23/18 12:11 Glucose (Fingerstick) 109 mg/dL (70-99) 112 mg/dL (70-99) Medications Current Medications Sodium Chloride 1,000 ml @ 100 mls/hr Q10H IV Last administered on 11/19/18at 09:54; Start 11/19/18 at 08:40; Stop 11/19/18 at 18:39; Status DC Naloxone HCl (Narcan) 0.8 mg 1X ONCE IV Last administered on 11/19/18at 10:02; Start 11/19/18 at 09:15; Stop 11/19/18 at 09:16; Status DC Insulin Human Regular (HumuLIN R VIAL) 10 unit 1X ONCE IV Last administered on 11/19/18at 10:01; Start 11/19/18 at 09:45; Stop 11/19/18 at 09:46; Status DC Dextrose (Dextrose 50%-Water Syringe) 25 gm 1X ONCE IV Last administered on at 10:02; Start 11/19/18 at 09:45; Stop 11/19/18 at 09:46; Status DC Sodium Bicarbonate 50 meq/Sodium Chloride 1,050 ml @ 125 mls/hr 1X ONCE IV Last administered on 11/19/18at 09:52; Start 11/19/18 at 10:00; Stop 11/19/18 at 18:23; Status DC Aspirin (Xander Aspirin) 325 mg 1X ONCE PO ; Start 11/19/18 at 10:15; Stop 11/19 at 10:16; Status DC Famotidine (Pepcid Vial) 20 mg QHS IVP Last administered on 11/21/18at 21:16; Start 11/19/18 at 21:00; Stop 11/22/18 at 10:53; Status DC Heparin Sodium (Porcine) (Heparin Sodium) 5,000 unit Q8HRS SQ Last administered on 11/23/18at 06:15; Start 11/19/18 at 14:00 Acetaminophen (Tylenol) 500 mg PRN Q6HRS PRN PO HEADACHE / TEMP; Start at 11:00; Stop 11/22/18 at 10:47; Status DC Ondansetron HCl (Zofran) 4 mg PRN Q6HRS PRN IV NAUSEA/VOMITING; Start 11/19/18 at 11:00 Morphine Sulfate (Morphine Sulfate) 1 mg PRN Q2HR PRN IV PAIN Last administered on 11/22/18at 16:26; Start 11/19/18 at 11:00 Aspirin (Aspirin) 300 mg DAILY NM Last administered on 11/22/18at 09:11; Start 11/20/18 at 09:00; Stop 11/22/18 at 10:47; Status DC Dextrose (Dextrose 50%-Water Syringe) 12.5 gm PRN Q15MIN PRN IV SEE COMMENTS Last administered on 11/21/18at 05:51; Start 11/20/18 at 05:00 Sodium Polystyrene Sulfonate (Kayexalate) 30 gm 1X ONCE NM Last administered on 11/20/18at 15:29; Start 11/20/18 at 12:00; Stop 11/20/18 at 12:01; Status DC Ceftriaxone Sodium (Rocephin) 1 gm Q24H IVP Last administered on 11/22/18 17: 37; Start 11/20/18 at 15:00 Amino Acids/ Glycerin/ Electrolytes 1,000 ml @ 80 mls/hr [id number] IV Last administered on 11/23/18 12:31; Start 11/21/18 at 12:45 Acetaminophen (Tylenol) 650 mg PRN Q4HRS PRN PO PAIN Last administered on at 12:23; Start 11/22/18 at 10:45 Amlodipine Besylate (Norvasc) 10 mg DAILY PO Last administered on 11/23/18 08: 44; Start 11/22/18 at 12:00 Aspirin (Ecotrin) 81 mg DAILY PO ; Start 11/23/18 at 09:00; Stop 11/23/18 at 09: 16; Status DC Clopidogrel Bisulfate (Plavix) 75 mg DAILY PO Last administered on 11/23/18 08 :39; Start 11/22/18 at 12:00 Furosemide (Lasix) 40 mg DAILY PO Last administered on 11/23/18at 08:39; Start 11/22/18 at 12:00 Glipizide (Glucotrol) 5 mg DAILY PO Last administered on 11/23/18 08:38; Start 11/22/18 at 12:00 Magnesium Hydroxide (Milk Of Magnesia) 2,400 mg PRN DAILY PRN PO CONSTIPATION; Start 11/22/18 at 10:45 Nitroglycerin (Nitrostat) 0.4 mg PRN Q5MIN PRN SL CHEST PAIN; Start 11/22/18 at 10:45 Simvastatin (Zocor) 10 mg QHS PO Last administered on 11/22/18at 21:15; Start at 21:00 Carvedilol (Coreg) 25 mg BIDWMEALS PO Last administered on 11/23/18 08:41; Start 11/22/18 at 17:00 Hydralazine HCl (Apresoline) 10 mg QID PO ; Start 11/22/18 at 14:00; Stop at 16:34; Status DC Magnesium Oxide (Magnesium Oxide) 400 mg DAILY PO Last administered on at 08:38; Start 11/22/18 at 12:00 Multivitamins (Thera M Plus) 1 tab DAILY PO Last administered on 11/23/18at 08: 38; Start 11/22/18 at 12:00 Famotidine (Pepcid) 20 mg QHS PO Last administered on 11/22/18at 21:15; Start at 21:00 Sertraline HCl (Zoloft) 100 mg DAILY PO Last administered on 11/23/18at 08:38; Start 11/22/18 at 12:00 Hydralazine HCl (Apresoline Inj) 5 mg [id number] IVP ; Start 11/22/18 at 17:00; Stop 11/22/18 at 17:20; Status DC Hydralazine HCl (Apresoline Inj) 10 mg PRN Q4HRS PRN IVP ELEVATED BP, SEE COMMENTS; Start 11/22/18 at 17:30 Aspirin (Children'S Aspirin) 81 mg [id number] PO Last administered on at 09:33; Start 11/23/18 at 09:00 Active Scripts Active Reported Milk Of Magnesia (Magnesium Hydroxide) 400 Mg/5 Ml Oral.susp 30 Ml PO PRN DAILY PRN NITROGLYCERIN SubLingual (Nitroglycerin) 0.4 Mg Tab.subl 0.4 Mg SL PRN Q5MIN PRN Simvastatin 10 Mg Tablet 1 Tab PO QHS Clopidogrel (Clopidogrel Bisulfate) 75 Mg Tablet 1 Tab PO DAILY Aspirin Ec (Aspirin) 81 Mg Tablet.dr 1 Tab PO DAILY Tylenol (Acetaminophen) 325 Mg Tablet 2 Tab PO PRN Q4HRS PRN Glipizide 5 Mg Tablet 1 Tab PO DAILY Magox 400 (Magnesium Oxide) 400 Mg Tablet 400 Mg PO DAILY Ranitidine Hcl 150 Mg Tablet 1 Tab PO DAILY Hydralazine Hcl 10 Mg Tablet 1 Tab PO QID Amlodipine Besylate 10 Mg Tablet 10 Mg PO DAILY Carvedilol 25 Mg Tablet 25 Mg PO BIDWMEALS Multivitamins (Multivitamin) 1 Each Tablet 1 Tab PO DAILY Zoloft (Sertraline Hcl) 100 Mg Tablet 1 Tab PO DAILY Furosemide 40 Mg Tablet 1 Tab PO DAILY Vitals/I & O Vital Sign - Last 24 Hours 11/22/18 11/22/18 11/22/18 11/22/18 15:26 19:00 20:15 23:00 Temp 99.1 98.0 98.5 99.1 98.0 98.5 Pulse 60 61 60 Resp 20 16 16 B/P (MAP) 164/77 (106) 161/76 (104) 154/79 (104) Pulse Ox 93 97 98 O2 Delivery Room Air Room Air Room Air Room Air 11/23/18 11/23/18 11/23/18 11/23/18 03:00 06:55 08:00 08:41 Temp 97.5 98.0 97.5 98.0 Pulse 60 57 57 Resp 18 20 B/P (MAP) 163/70 (101) 172/79 (110) 172/79 Pulse Ox 95 94 O2 Delivery Room Air Room Air Room Air 11/23/18 11/23/18 08:44 10:37 Temp 97.7 97.7 Pulse 57 58 Resp 18 B/P (MAP) 172/79 152/68 (96) Pulse Ox 94 O2 Delivery Room Air Intake and Output 11/22/18 11/22/18 11/23/18 15:01 23:01 07:01 Intake Total 200 ml 100 ml 0 ml Balance 200 ml 100 ml 0 ml Nutrition Consultation Dietary Evaluation: Recommendations by RD: PPN/TPN Comments: diet advancement per [employer], added Renal, ADA PPN day 3, would continue at this time Expected Outcomes/Goals: diet advancement/ tolerance of foods - met new goal: to meet > 75% est nutr needs via po intake alone Malnutrition Findings: Body Fat Depletion (Non Severe: Mild Depletion Weight Status: Obese ARLENE MUÑOZ III DO Nov 23, 2018 12:54
--- NOTE | 2018-11-23 13:07 | DISCH ---
DISCHARGE DISCHARGE INFORMATION: FINAL DIAGNOSIS Problems Medical Problems: (1) Altered mental status, unspecified Status: Acute (2) Right sided weakness Status: Acute CONDITION ON DISCHARGE: Stable CODE STATUS: Code Status: Full [facility]IVING: SNF STAY <30 DAYS: Yes HOSPICE: HOSPICE: No HOSPICE EVAL & TREAT: No LTAC: ADMIT TO LTAC: No POST DISCHARGE ORDERS: ACTIVITY ORDERS: Bedrest today DIET AFTER DISCHARGE: Cardiac TREATMENT/EQUIPMENT ORDERS: Physical Therapy For: Evalulation/Treatment Occupational Therapy For: Evaluation/Treatment Speech Language Pathology For: Evaluation/Treatment DISCHARGE MEDICATIONS: Home Meds Reported Medications Magnesium Hydroxide (MILK OF MAGNESIA) 400 Mg/5 Ml Oral.susp, 30 ML PO PRN DAILY PRN for CONSTIPATION, MISC 11/19/18 Nitroglycerin (NITROGLYCERIN SubLingual) 0.4 Mg Tab.subl, 0.4 MG SL PRN Q5MIN PRN for CHEST PAIN, BOTTLE 11/19/18 Simvastatin (SIMVASTATIN) 10 Mg Tablet, 1 TAB PO QHS for HLD, #30 TAB 5 Refills 11/19/18 Clopidogrel Bisulfate (CLOPIDOGREL) 75 Mg Tablet, 1 TAB PO DAILY for CAD, #90 TAB 1 Refill 11/19/18 Aspirin (ASPIRIN EC) 81 Mg Tablet.dr, 1 TAB PO DAILY for CAD, #30 TAB 3 Refills 11/19/18 Acetaminophen (TYLENOL) 325 Mg Tablet, 2 TAB PO PRN Q4HRS PRN for PAIN, #30 TAB 11/19/18 Glipizide (GLIPIZIDE) 5 Mg Tablet, 1 TAB PO DAILY for DM, #90 TAB 3 Refills 11/19/18 Magnesium Oxide (MAGOX 400) 400 Mg Tablet, 400 MG PO DAILY for hypomagnesium, TAB 11/19/18 Ranitidine Hcl (RANITIDINE HCL) 150 Mg Tablet, 1 TAB PO DAILY for GERD, #180 TAB 3 Refills 11/19/18 Hydralazine Hcl (HYDRALAZINE HCL) 10 Mg Tablet, 1 TAB PO QID for HTN, #60 TAB 3 Refills 11/19/18 Amlodipine Besylate (AMLODIPINE BESYLATE) 10 Mg Tablet, 10 MG PO DAILY for HTN, TAB 11/19/18 Carvedilol (CARVEDILOL) 25 Mg Tablet, 25 MG PO BIDWMEALS for CARDIAC, TAB 11/19/18 Multivitamin (MULTIVITAMINS) 1 Each Tablet, 1 TAB PO DAILY for vitamin deficiency, #90 TAB 3 Refills 11/19/18 Sertraline Hcl (ZOLOFT) 100 Mg Tablet, 1 TAB PO DAILY for depression, #30 TAB 5 Refills 11/19/18 Furosemide (FUROSEMIDE) 40 Mg Tablet, 1 TAB PO DAILY for CHF, #30 TAB 5 Refills 11/19/18 ARLENE MUÑOZ III DO Nov 23, 2018 13:07
--- NOTE | 2018-11-23 13:49 | NUR ---
Spoke with PT/OT, patient was evaluated 2 days ago and remains at baseline. Patient will need lift for transfers.
--- NOTE | 2018-11-23 13:50 | PDOC ---
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 Renal Sono and UA Unremarkable Right sided weakness- Neurology following Hyperkalemia- mild Monitor Anemia- Hgb stable On Aranesp HTN- continue antihypertensives DM II- as per primary Hyperkalemia - K Normal Palliative consulted COMMENT/RELEVANT DATA Meds Current Medications Medications (Trade) Dose Ordered Sig/Antonio Start Time Stop Time Status Last Admin Dose Admin Acetaminophen (Tylenol) 650 mg PRN Q4HRS PRN 11/22/18 10:45 11/22/18 12:23 650 MG Amino Acids/ Glycerin/ Electrolytes 1,000 ml @ 80 mls/hr [id number] 11/21/18 12:45 11/23/18 12:31 80 MLS/HR Amlodipine Besylate (Norvasc) 10 mg DAILY 11/22/18 12:00 11/23/18 08:44 10 MG Aspirin (Aspirin) 300 mg DAILY 11/20/18 09:00 11/22/18 10:47 DC 11/22/18 09:11 300 MG Aspirin (Xander Aspirin) 325 mg 1X ONCE 11/19/18 10:15 11/19/18 10:16 DC Aspirin (Children'S Aspirin) 81 mg [id number] 11/23/18 09:00 11/23/18 09:33 81 MG Aspirin (Ecotrin) 81 mg DAILY 11/23/18 09:00 11/23/18 09:16 DC Carvedilol (Coreg) 25 mg BIDWMEALS 11/22/18 17:00 11/23/18 08:41 25 MG Ceftriaxone Sodium (Rocephin) 1 gm Q24H 11/20/18 15:00 11/22/18 17:37 1 GM Clopidogrel Bisulfate (Plavix) 75 mg DAILY 11/22/18 12:00 11/23/18 08:39 75 MG Dextrose (Dextrose 50%-Water Syringe) 12.5 gm PRN Q15MIN PRN 11/20/18 05:00 11/21/18 05:51 12.5 GM Famotidine (Pepcid Vial) 20 mg QHS 11/19/18 21:00 11/22/18 10:53 DC 11/21/18 21:16 20 MG Famotidine (Pepcid) 20 mg QHS 11/22/18 21:00 11/22/18 21:15 20 MG Furosemide (Lasix) 40 mg DAILY 11/22/18 12:00 11/23/18 08:39 40 MG Glipizide (Glucotrol) 5 mg DAILY 11/22/18 12:00 11/23/18 08:38 5 MG Heparin Sodium (Porcine) (Heparin Sodium) 5,000 unit Q8HRS 11/19/18 14:00 11/23/18 06:15 5,000 UNIT Hydralazine HCl (Apresoline Inj) 10 mg PRN Q4HRS PRN 11/22/18 17:30 Hydralazine HCl (Apresoline) 10 mg QID 11/22/18 14:00 11/22/18 16:34 DC Insulin Human Regular (HumuLIN R VIAL) 10 unit 1X ONCE 11/19/18 09:45 11/19/18 09:46 DC 11/19/18 10:01 10 UNIT Magnesium Hydroxide (Milk Of Magnesia) 2,400 mg PRN DAILY PRN 11/22/18 10:45 Magnesium Oxide (Magnesium Oxide) 400 mg DAILY 11/22/18 12:00 11/23/18 08:38 400 MG Morphine Sulfate (Morphine Sulfate) 1 mg PRN Q2HR PRN 11/19/18 11:00 11/22/18 16:26 1 MG Multivitamins (Thera M Plus) 1 tab DAILY 11/22/18 12:00 11/23/18 08:38 1 TAB Naloxone HCl (Narcan) 0.8 mg 1X ONCE 11/19/18 09:15 11/19/18 09:16 DC 11/19/18 10:02 0.8 MG Nitroglycerin (Nitrostat) 0.4 mg PRN Q5MIN PRN 11/22/18 10:45 Ondansetron HCl (Zofran) 4 mg PRN Q6HRS PRN 11/19/18 11:00 Sertraline HCl (Zoloft) 100 mg DAILY 11/22/18 12:00 11/23/18 08:38 100 MG Simvastatin (Zocor) 10 mg QHS 11/22/18 21:00 11/22/18 21:15 10 MG Sodium Bicarbonate 50 meq/Sodium Chloride 1,050 ml @ 125 mls/hr 1X ONCE 11/19/18 10:00 11/19/18 18:23 DC 11/19/18 09:52 125 MLS/HR Sodium Polystyrene Sulfonate (Kayexalate) 30 gm 1X ONCE 11/20/18 12:00 11/20/18 12:01 DC 11/20/18 15:29 30 GM Sodium Chloride 1,000 ml @ 100 mls/hr Q10H 11/19/18 08:40 11/19/18 18:39 DC 11/19/18 09:54 100 MLS/HR Lab Laboratory Tests Test 11/22/18 17:39 11/22/18 18:25 11/22/18 23:55 11/23/18 06:00 Glucose (Fingerstick) 101 mg/dL (70-99) 99 mg/dL (70-99) White Blood Count 6.0 x10^3/uL (4.0-11.0) 6.6 x10^3/uL (4.0-11.0) Red Blood Count 3.24 x10^6/uL (3.50-5.40) 3.46 x10^6/uL (3.50-5.40) Hemoglobin 9.3 g/dL (12.0-15.5) 9.8 g/dL (12.0-15.5) Hematocrit 28.3 % (36.0-47.0) 30.3 % (36.0-47.0) Mean Corpuscular Volume 87 fL (79-100) 88 fL (79-100) Mean Corpuscular Hemoglobin 29 pg (25-35) 28 pg (25-35) Mean Corpuscular Hemoglobin Concent 33 g/dL (31-37) 32 g/dL (31-37) Red Cell Distribution Width 17.4 % (11.5-14.5) 17.3 % (11.5-14.5) Platelet Count 171 x10^3/uL (140-400) 189 x10^3/uL (140-400) Neutrophils (%) (Auto) 68 % (31-73) 66 % (31-73) Lymphocytes (%) (Auto) 16 % (24-48) 18 % (24-48) Monocytes (%) (Auto) 10 % (0-9) 10 % (0-9) Eosinophils (%) (Auto) 5 % (0-3) 6 % (0-3) Basophils (%) (Auto) 1 % (0-3) 1 % (0-3) Neutrophils # (Auto) 4.1 x10^3uL (1.8-7.7) 4.4 x10^3uL (1.8-7.7) Lymphocytes # (Auto) 1.0 x10^3/uL (1.0-4.8) 1.2 x10^3/uL (1.0-4.8) Monocytes # (Auto) 0.6 x10^3/uL (0.0-1.1) 0.7 x10^3/uL (0.0-1.1) Eosinophils # (Auto) 0.3 x10^3/uL (0.0-0.7) 0.4 x10^3/uL (0.0-0.7) Basophils # (Auto) 0.1 x10^3/uL (0.0-0.2) 0.0 x10^3/uL (0.0-0.2) Free Thyroxine 0.90 ng/dL (0.76-1.46) Free Triiodothyronine (T3) pg/mL 1.61 pg/mL (2.18-3.98) Sodium Level 140 mmol/L (136-145) Potassium Level 5.6 mmol/L (3.5-5.1) Chloride Level 107 mmol/L (98-107) Carbon Dioxide Level 22 mmol/L (21-32) Anion Gap 11 (6-14) Blood Urea Nitrogen 44 mg/dL (7-20) Creatinine 2.2 mg/dL (0.6-1.0) Estimated GFR (Cockcroft-Gault) 21.7 Glucose Level 104 mg/dL (70-99) Calcium Level 9.2 mg/dL (8.5-10.1) Test 11/23/18 07:14 11/23/18 12:11 Glucose (Fingerstick) 109 mg/dL (70-99) 112 mg/dL (70-99) Results All relevant outside records, renal labs, imaging studies, telemetry/EKG's were reviewed. EDDIE OCONNELL MD Nov 23, 2018 13:50
[2018-11-23] MEDS: cefTRIAXone IV Push 1 GM VIAL. IVP SCH (14:20)
--- NOTE | 2018-11-23 14:55 | NUR ---
SW following pt. SW phoned and faxed orders to [facility]. Pt will transport via [facility] at 1600. Cintia Santiago will notify family. RN notified.
[2018-11-23 15:43] VITALS: BP 169/71
--- NOTE | 2018-11-23 15:48 | PDOC ---
PROGRESS NOTES Assessment Assessment Metabolic encephalopathy. Fever, 100.4 degree on 11/20/18. Pneumonia. Renal failure. Hyperkalemia. NEETU on CKD. HTN. HLD. Wheel chair bound. Obesity. Pacemaker in placement. RECOMMENDATIONS/PLAN: Continue ASA daily. EEG. No MRI due to pacemaker. Consulted ID. OT/PT. HCT: No acute findings. PAST MEDICAL AND SURGICAL HISTORY: Please see H&P ALLERGY: Unknown MEDICATIONS: Refer to MAR REVIEW OF SYSTEMS: Constitutional: Obesity. Head: No traumatic brain or head injury. Skin: No edema, or rash. Ear: No infection. Eyes: No vision loss, or diplopia. Nose: No bleeding or purulent discharges. Hearing: Hearing loss. Neck: No injury. Breast: No history of cancer, masses, or discharges. Cardiac: Pacemaker Placement, HTN, HLD Pulmonary: No COPD. GI: No GI Ulcer, GI bleeding Urinary/genital: CKD. Endocrine: Obesity. Skeletomuscular: No muscular atrophy, deformity. Neurological: see HP. Psychiatric: Denies drug use/abuse. Otherwise, not [id number] review of systems. PHYSICAL EXAMINATION: General appearance in no acute distress. HEENT: Normocephalic and nontraumatic. Eyes, nose, ears, and throat are unremarkable. Neck is supple. No lymphadenopathy. No Crepitus. Cardiovascular: S1, S2, regular rate and rhythm. Pulmonary: Decreased to auscultation bilaterally. Abdomen: Bowel sounds are positive. Abdomen is soft, nontender, and nondistended. Extremities: No rash, lesions, or edema. No restriction of range of motion NEUROLOGICAL EXAMINATION: Awake from time to time. Able to say a few words. Not oriented to time, place and person. PERRL. EOMI. CN: no focal findings. Muscle tone: within normal. Muscle strength: 4+ DTR: 1-2 Plantar reflex: Flexor response bilaterally Gait: not examined in bed. Sensory exam: no abnormal findings. No other cerebellar signs elicited. F-T-N test not performed due to not follow commands. Objective Objective Vital Signs Date Time Temp Pulse Resp B/P (MAP) Pulse Ox O2 Delivery O2 Flow Rate FiO2 11/23/18 15:43 97.7 59 20 169/71 (103) 94 Room Air 97.7 Intake and Output 11/23/18 07:01 Intake Total 300 ml Balance 300 ml Intake Oral 300 ml # Voids 5 Vitals Signs Vitals VS - Last 72 Hours, by Label Date Time Temp Pulse Resp B/P (MAP) Pulse Ox O2 Delivery O2 Flow Rate FiO2 11/23/18 15:43 97.7 59 20 169/71 (103) 94 Room Air 97.7 11/23/18 10:37 97.7 58 18 152/68 (96) 94 Room Air 97.7 11/23/18 08:44 57 172/79 11/23/18 08:41 57 172/79 11/23/18 08:00 Room Air 11/23/18 06:55 98.0 57 20 172/79 (110) 94 Room Air 98.0 11/23/18 03:00 97.5 60 18 163/70 (101) 95 Room Air 97.5 11/22/18 23:00 98.5 60 16 154/79 (104) 98 Room Air 98.5 11/22/18 20:15 Room Air 11/22/18 19:00 98.0 61 16 161/76 (104) 97 Room Air 98.0 11/22/18 15:26 99.1 60 20 164/77 (106) 93 Room Air 99.1 11/22/18 12:24 60 149/72 11/22/18 11:15 97.8 60 18 149/72 (97) 96 Room Air 97.8 11/22/18 08:00 Room Air 11/22/18 07:00 98.1 59 18 169/59 (95) 98 Room Air 98.1 Laboratory Laboratory Laboratory Tests Test 11/22/18 17:39 11/22/18 18:25 11/22/18 23:55 11/23/18 06:00 Glucose (Fingerstick) 101 mg/dL (70-99) 99 mg/dL (70-99) White Blood Count 6.0 x10^3/uL (4.0-11.0) 6.6 x10^3/uL (4.0-11.0) Red Blood Count 3.24 x10^6/uL (3.50-5.40) 3.46 x10^6/uL (3.50-5.40) Hemoglobin 9.3 g/dL (12.0-15.5) 9.8 g/dL (12.0-15.5) Hematocrit 28.3 % (36.0-47.0) 30.3 % (36.0-47.0) Mean Corpuscular Volume 87 fL (79-100) 88 fL (79-100) Mean Corpuscular Hemoglobin 29 pg (25-35) 28 pg (25-35) Mean Corpuscular Hemoglobin Concent 33 g/dL (31-37) 32 g/dL (31-37) Red Cell Distribution Width 17.4 % (11.5-14.5) 17.3 % (11.5-14.5) Platelet Count 171 x10^3/uL (140-400) 189 x10^3/uL (140-400) Neutrophils (%) (Auto) 68 % (31-73) 66 % (31-73) Lymphocytes (%) (Auto) 16 % (24-48) 18 % (24-48) Monocytes (%) (Auto) 10 % (0-9) 10 % (0-9) Eosinophils (%) (Auto) 5 % (0-3) 6 % (0-3) Basophils (%) (Auto) 1 % (0-3) 1 % (0-3) Neutrophils # (Auto) 4.1 x10^3uL (1.8-7.7) 4.4 x10^3uL (1.8-7.7) Lymphocytes # (Auto) 1.0 x10^3/uL (1.0-4.8) 1.2 x10^3/uL (1.0-4.8) Monocytes # (Auto) 0.6 x10^3/uL (0.0-1.1) 0.7 x10^3/uL (0.0-1.1) Eosinophils # (Auto) 0.3 x10^3/uL (0.0-0.7) 0.4 x10^3/uL (0.0-0.7) Basophils # (Auto) 0.1 x10^3/uL (0.0-0.2) 0.0 x10^3/uL (0.0-0.2) Free Thyroxine 0.90 ng/dL (0.76-1.46) Free Triiodothyronine (T3) pg/mL 1.61 pg/mL (2.18-3.98) Sodium Level 140 mmol/L (136-145) Potassium Level 5.6 mmol/L (3.5-5.1) Chloride Level 107 mmol/L (98-107) Carbon Dioxide Level 22 mmol/L (21-32) Anion Gap 11 (6-14) Blood Urea Nitrogen 44 mg/dL (7-20) Creatinine 2.2 mg/dL (0.6-1.0) Estimated GFR (Cockcroft-Gault) 21.7 Glucose Level 104 mg/dL (70-99) Calcium Level 9.2 mg/dL (8.5-10.1) Test 11/23/18 07:14 11/23/18 12:11 Glucose (Fingerstick) 109 mg/dL (70-99) 112 mg/dL (70-99) Medication Medications Current Medications Aspirin (Children'S Aspirin) 81 mg DAILYWBKFT PO Last administered on at 09:33; Start 11/23/18 at 09:00 Aspirin (Ecotrin) 81 mg DAILY PO ; Start 11/23/18 at 09:00; Stop 11/23/18 at 09: 16; Status DC Carvedilol (Coreg) 25 mg BIDWMEALS PO Last administered on 11/23/18at 08:41; Start 11/22/18 at 17:00 Famotidine (Pepcid) 20 mg QHS PO Last administered on 11/22/18at 21:15; Start at 21:00 Hydralazine HCl (Apresoline Inj) 5 mg DOC3922 IVP ; Start 11/22/18 at 17:00; Stop 11/22/18 at 17:20; Status DC Hydralazine HCl (Apresoline Inj) 10 mg PRN Q4HRS PRN IVP ELEVATED BP, SEE COMMENTS; Start 11/22/18 at 17:30 Simvastatin (Zocor) 10 mg QHS PO Last administered on 11/22/18at 21:15; Start at 21:00 Comment Review of Relevant I have reviewed the following items adal (where applicable) has been applied. RADHA NEWTON MD Nov 23, 2018 15:48
--- NOTE | 2018-11-23 16:26 | PDOC2 ---
PALLIATIVE CARE Palliative Care Note Palliative Care Consult requested by Dr. Hopkins to address goals of care./CVA Medical Assessment per medical record 1. Normocytic anemia 2. NEETU 3. HTN 4. DM2 5. CKD Patient has been discharged back to [facility]. Patient has pacemaker ?? AICD. Code Status; Full Code. Dr. Hopkins notified PC did not see patient and patient has AICD. CALEB BUTLER Nov 23, 2018 16:26
--- NOTE | 2018-11-23 16:45 | EEG ---
DATE OF SERVICE: 11/22/2018 ELECTROENCEPHALOGRAM NUMBER: [id number]. OBJECTIVE: This is a 78-year-old female patient with history of prolonged mental status changes. EEG was requested to evaluate cerebral activity and help rule out subclinical seizures. METHODS: Twenty electrodes were applied according to the international 10-20 electrode placement system. EKG monitoring, hyperventilation, intermittent photic stimulation, monopolar and bipolar montages are routinely utilized. The record was obtained on a digital system with video monitoring. FINDINGS: 1. Background: The patient was recorded in the awake, drowsy, and sleep states. The overall background amplitude is 10-20 microvolts. A posterior dominant rhythm of 6-8 Hz is observed with superimposed slowing in the theta and delta frequencies throughout the entire recording. 2. Abnormalities: No specific epileptiform discharge or electrographic seizure is seen. Diffuse slowing in the theta and delta frequencies is throughout the entire recording. 3. Activation: Hyperventilation was not performed because the patient was unable to perform the technique. Intermittent photic stimulation was performed with photic driving. No specific epileptiform discharge or electrographic seizure induced. IMPRESSION: This electroencephalogram is an abnormal study for the awake, drowsy, and sleep states. The posterior dominant rhythm of 6-8 Hz is slow for age. Diffuse slowing in the theta and delta frequencies throughout the entire recording. No focal, lateralizing, specific epileptiform discharge, or electrographic seizure is seen. This pattern of electroencephalogram is suggestive of diffuse encephalopathy. RADHA NEWTON MD DR: MONIE/jadon JOB#: [id number] / [id number] YONAS
--- NOTE | 2018-11-23 17:51 | NUR ---
Discharge Note: JULIETA HICKEY [address] Discharge instructions and discharge home medications reviewed and reported to Parish RN at [facility] resort at 1530 and a copy given to EMS transport. All questions have been answered and understanding verbalized. Discontinued lines and drains: peripheral IV catheter intact, patient tolerated removal with no complications noted. [facility]00.
== END 2018-11-23 17:00 | DRG 177 ==
LOC: ER 08:28 → 6 SOUTH 10:36
PROVIDERS: ADMIT Internal Medicine; ATTEND Internal Medicine
DX: J69.0 Pneumonitis due to inhalation of food and vomit (principal); G93.41 Metabolic encephalopathy; N17.9 Acute kidney failure, unspecified; E87.2 Acidosis; N18.4 Chronic kidney disease, stage 4 (severe); J90 Pleural effusion, not elsewhere classified; E11.22 Type 2 diabetes mellitus with diabetic chronic kidney disease; E87.5 Hyperkalemia; D64.9 Anemia, unspecified; E78.00 Pure hypercholesterolemia, unspecified; I12.9 Hypertensive chronic kidney disease with stage 1 through stage 4 chronic kidney disease, or unspecified chronic kidney disease; E78.5 Hyperlipidemia, unspecified; E66.9 Obesity, unspecified; Z79.82 Long term (current) use of aspirin; I69.320 Aphasia following cerebral infarction; Z68.33 Body mass index [BMI] 33.0-33.9, adult; Z95.0 Presence of cardiac pacemaker
CPT/HCPCS: 36415; 70450; 71045; 76770; 80048; 80053; 80061; 81001; 82607; 82962; 83735; 84132; 84439; 84443; 84481; 84484; 85025; 85610; 87641; 93005; 93306; 93880; 95816; 96374; 96375; J0696; J1644; J1815; J2270; J2310; J3490; J7030; J7042; 92610; 99285-25